=== PATIENT | male | born 1975 | race Caucasian/White ===

== ENCOUNTER 2021-08-31 12:08 | Emergency (ER) | payer MEDICARE, BC ==
--- NOTE | 2021-08-31 12:13 | ERPHSYRPT ---
- History of Present Illness Time Seen by Provider: 08/31/21 12:13 Source: EMS Exam Limitations: clinical condition Physician History: This is a 45-year-old white male patient of Dr. Jimenez who is a paraplegic and is on home dialysis. Apparently, per EMS report, the said that the patient has not received dialysis in approximately 3 days. Per EMS service, this is a fairly common occurrence. Patient's Glascow coma scale was 7 when EMS arrived to the home and his respirations were shallow measuring approximately 7 to 8 respirations per minute. Patient was orotracheally intubated with a 7.5 ET tube measuring 26 at the lips. Patient arrives to the emergency department orotracheally intubated and unresponsive. Timing/Duration: today Severity: severe Character of Deficits: other (Longstanding paraplegic. Patient is orotracheally intubated) Deficits: bed-ridden, cannot stand, cannot walk Baseline/Normal Cognition: alert oriented x 3 Current Cognition: poor alertness Baseline Gait: unable to walk Associated Symptoms: other (Patient orotracheally intubated and unresponsive) Allergies/Adverse Reactions: No Known Drug Allergies Allergy (Verified 08/31/21 12:22) Home Medications: Anastrozole 0.5 mg PO DAILY 01/28/12 [History] Baclofen 20 mg PO TID 01/28/12 [History] Cabergoline 0.5 mg PO UD 01/28/12 [History] Carvedilol 25 mg PO BID 01/28/12 [History] Famotidine 20 mg 20 mg PO DAILY 01/28/12 [History] Labetalol HCl 400 mg PO BID 01/28/12 [History] Renvela 3,200 mg PO TID 01/28/12 [History] Sensipar 90 mg PO DAILY 01/28/12 [History] Stool Softener DAILY PRN PRN 01/28/12 [History] Triphrocaps Softgel 1 cap PO DAILY 01/28/12 [History] Viagra 100 mg PO DAILY PRN PRN 01/28/12 [History] Vitamin D 50,000 units PO 01/28/12 [History] Zemplar 1 mcg PO 01/28/12 [History] Zemplar 2 mcg PO DAILY 01/28/12 [History] Hx Tetanus, Diphtheria Vaccination/Date Given: Yes (1993) Hx Influenza Vaccination/Date Given: No Hx Pneumococcal Vaccination/Date Given: No Travel Risk - International Travel Have you traveled outside of the country in past 3 weeks: No - Coronavirus Screening Are you exhibiting any of the following symptoms?: No Close contact with a COVID-19 positive Pt in past 14-21 Days: No - Review of Systems Constitutional: No Symptoms Eyes: No Symptoms Ears, Nose, & Throat: No Symptoms Respiratory: No Symptoms Cardiac: No Symptoms Abdominal/Gastrointestinal: No Symptoms Genitourinary Symptoms: No Symptoms Musculoskeletal: No Symptoms Skin: No Symptoms Neurological: Other (Patient orotracheally intubated and unresponsive) Psychological: No Symptoms Endocrine: No Symptoms Hematologic/Lymphatic: No Symptoms Immunological/Allergic: No Symptoms All Other Systems: Reviewed and Negative - Past Medical History Pertinent Past Medical History: Yes History: Renal Disease Other Medical History: PARAPLEGIC, END STAGE RENAL DISEASE, NEUROPATHY - Past Surgical History Past Surgical History: Yes Gastrointestinal: Hernia Repair Musculoskeletal: Orthopedic Surgery Other Surgical History: SPINAL FUSION, FISTULA PLACEMENT, HERNIA REPAIR - Social History Smoking Status: Current every day smoker How long have you smoked: 20 Exposure to second hand smoke: No Drug Use: none Patient Lives Alone: No - Nursing Vital Signs Nursing Vital Signs: Initial Vital Signs Temperature 97.3 F 08/31/21 12:09 Pulse Rate 79 08/31/21 12:09 Respiratory Rate 18 08/31/21 12:09 Blood Pressure 164/125 08/31/21 12:09 O2 Sat by Pulse Oximetry 97 08/31/21 12:09 Pain Scale Pain Intensity 0 - Hardin Coma Scale Best Eye Response (Hardin): (1) no response Best Verbal Response (Anitha): (1) no verbal response Best Motor Response (Hardin): (1) no motor response Hardin Total: 3 - Physical Exam General Appearance: other (Patient orotracheal intubated unresponsive) Eye Exam: bilateral eye: normal inspection Ears, Nose, Throat Exam: other (Orotracheally intubated) Neck Exam: normal inspection, non-tender, supple, full range of motion Respiratory: normal breath sounds, lungs clear, other (Patient orotracheally intubated), No chest tenderness, No respiratory distress Cardiovascular: regular rate/rhythm, normal heart sounds, normal peripheral pulses Gastrointestinal: soft, normal bowel sounds, No tenderness Rectal Exam: not done Back Exam: normal inspection, normal range of motion, No CVA tenderness, No vertebral tenderness Extremity Exam: paralysis (Chronic), pedal edema Mental Status: unresponsive Skin Exam: pale O2 Delivery: Ventilator - Course Nursing assessment & vital signs reviewed: Yes EKG Interpreted by Me: RATE (80), Sinus Rhythm, NORMAL AXIS, prolonged QT interval (Borderline), NORMAL QRS, NORMAL ST-T, Other (No acute ischemic changes on today's EKG. There is no comparison EKG.) Ordered Tests: Active Orders 24 hr Category Date Time Status EKG-ER Only STAT Care 08/31/21 12:13 Active IV Insertion STAT Care 08/31/21 12:13 Active NPO (ED) STAT Care 08/31/21 12:13 Active CHEST 1 VIEW (PORTABLE) Stat Exams 08/31/21 12:15 Completed HEAD WITHOUT CONTRAST [CT] Stat Exams 08/31/21 12:14 Completed ABG [ARTERIAL BLOOD GASES] Stat Lab 08/31/21 12:13 Completed ABG [ARTERIAL BLOOD GASES] Urgent Lab 08/31/21 13:48 Completed BLOOD CULTURE Stat Lab 08/31/21 12:55 Received BMP Urgent Lab 08/31/21 15:25 Received CBC W DIFF Stat Lab 08/31/21 12:55 Completed CMP Stat Lab 08/31/21 12:55 Completed COVID AG-BINAX NOW RAPID TEST Stat Lab 08/31/21 14:05 Completed CULTURE,URINE Stat Lab 08/31/21 12:14 Ordered Lactic Acid Stat Lab 08/31/21 12:13 Completed POCT GLUCOSE Stat Lab 08/31/21 15:31 Completed TROPONIN Q3H Lab 08/31/21 12:55 Completed TROPONIN Q3H Lab 08/31/21 15:25 Received TROPONIN Q3H Lab 08/31/21 18:30 Ordered TROPONIN Q3H Lab 08/31/21 21:30 Ordered TROPONIN Q3H Lab 09/01/21 00:30 Ordered UA W/RFX UR CULTURE Stat Lab 08/31/21 12:18 Completed Respiratory Therapy Assessment DAILY RT 08/31/21 13:54 Active Standby STAT RT 08/31/21 14:05 Active Ventilator Management Q4H RT 08/31/21 13:54 Active Medication Summary Generic Name Dose Route Start Last Admin Trade Name Freq PRN Reason Stop Dose Admin Midazolam HCl 50 mg/ Sodium 250 mls @ 8.85 mls/hr 08/31/21 12:53 Chloride IV 09/30/21 12:52 .Q24H PRN SEDATION Protocol 0.025 MG/KG/HR Discontinued Medications Generic Name Dose Route Start Last Admin Trade Name Connie PRN Reason Stop Dose Admin Calcium Gluconate 1,000 mg 08/31/21 15:56 Calcium Gluconate 1000 Mg/10 Ml Vial IV 08/31/21 15:57 STAT ONE Dextrose 50 ml 08/31/21 13:51 08/31/21 14:04 Dextrose 50%-Water 50 Ml Abboject IV 08/31/21 13:52 50 ml STAT ONE Administration Dextrose Confirm 08/31/21 14:04 Dextrose 50%-Water 50 Ml Abboject Administered 08/31/21 14:05 Dose 50 ml IV .STK-MED ONE Calcium Chloride 1,000 mg/ 110 mls @ 220 mls/hr 08/31/21 13:38 08/31/21 14:22 Sodium Chloride IV 08/31/21 14:07 220 mls/hr ONCE ONE Administration Ceftriaxone Sodium/Dextrose 1 g in 50 mls @ 100 mls/hr 08/31/21 13:56 08/31/21 14:40 Rocephin 1 Gm-D5w 50 Ml Bag IV 08/31/21 14:25 Infused STAT STA Infusion Ceftriaxone Sodium/Dextrose Confirm 08/31/21 14:03 Rocephin 1 Gm-D5w 50 Ml Bag Administered 08/31/21 14:04 Dose 1 g in 50 mls @ ud IV .STK-MED ONE Metoprolol Tartrate 5 mg 08/31/21 14:13 08/31/21 14:21 Metoprolol Tartrate 5 Mg/5 Ml Injection IV 08/31/21 14:14 5 mg STAT ONE Administration Metoprolol Tartrate Confirm 08/31/21 14:18 Metoprolol Tartrate 5 Mg/5 Ml Injection Administered 08/31/21 14:19 Dose 5 mg IV .STK-MED ONE Sodium Bicarbonate 50 meq 08/31/21 15:25 08/31/21 15:45 Sodium Bicarbonate 1 Meq/Ml 50ml Syringe IV 08/31/21 15:26 50 meq STAT ONE Administration Sodium Bicarbonate Confirm 08/31/21 15:45 Sodium Bicarbonate 1 Meq/Ml 50ml Syringe Administered 08/31/21 15:46 Dose 50 meq IV .STK-MED ONE Lab/Rad Data: Laboratory Result Diagrams 08/31/21 12:55 08/31/21 12:55 Laboratory Results 08/31/21 08/31/21 08/31/21 Range/Units 15:31 14:05 13:48 WBC (4.0-10.5) K/mm3 RBC (4.1-5.6) M/mm3 Hgb (12.5-18.0) gm/dl Hct (42-50) % MCV (78-100) fl MCH (26-32) pg MCHC (32-36) g/dl RDW (11.5-14.0) % Plt Count (150-450) K/mm3 MPV (7.5-11.0) fl Gran % (36.0-66.0) % Eos # (Auto) (0-0.5) Absolute Lymphs (auto) (1.0-4.6) Absolute Monos (auto) (0.0-1.3) Lymphocytes % (24.0-44.0) % Monocytes % (0.0-12.0) % Eosinophils % (0.00-5.0) % Basophils % (0.0-0.4) % Absolute Granulocytes (1.4-6.9) Basophils # (0-0.4) Puncture Site LEFT RADIAL pCO2 43 (35-45) mmHg pO2 198 H* (75-100) mmHg Base Excess -0.6 (-2.0-2.0) O2 Saturation 97.6 (94-100) g/dF ABG pH 7.37 (7.35-7.45) ABG HCO3 24.9 (22-28) ABG O2 Sat (Measured) 99.2 (95-100) % Jet Test YES A-a Gradient 176 a/A Ratio 0.53 Hemoglobin 10.4 Carboxyhemoglobin 1.0 (0.0-6.9) % THgb Methemoglobin 0.7 L (1.4-1.5) % Potassium 6.9 H* (3.5-5.1) Temperature 37.0 C POC O2 Flow Rate 60 % Sodium (137-145) mmol/L Chloride (98-107) mmol/L Carbon Dioxide (22-30) mmol/L Anion Gap (5-15) MEQ/L BUN (9-20) mg/dL Creatinine (0.66-1.25) mg/dL Estimated GFR ML/MIN Glucose (74-106) mg/dL POC Glucometer 119 H (74 to 106) mg/dL Lactic Acid (0.4-2.0) Calcium (8.4-10.2) mg/dL Total Bilirubin (0.2-1.3) mg/dL AST (17-59) U/L ALT (0-50) U/L Alkaline Phosphatase (38-126) U/L Ammonia (9-30) umol/L Troponin I (0.000-0.034) ng/mL Serum Total Protein (6.3-8.2) g/dL Albumin (3.5-5.0) g/dL Urine Color (YELLOW) Urine Appearance (CLEAR) Urine pH (5-6) Ur Specific [place] (1.005-1.025) Urine Protein (Negative) Urine Ketones (NEGATIVE) Urine Blood (0-5) Miguel A/ul Urine Nitrite (NEGATIVE) Urine Bilirubin (NEGATIVE) Urine Urobilinogen (0-1) mg/dL Ur Leukocyte Esterase (NEGATIVE) Urine WBC (Auto) (0-5) /HPF Urine RBC (Auto) (0-2) /HPF Urine Bacteria (Auto) (NEGATIVE) /HPF Urine Culture Reflexed (NO) Urine Glucose (NEGATIVE) mg/dL SARS-CoV-2 Ag (Rapid) NEGATIVE (NEGATIVE) 08/31/21 08/31/21 08/31/21 Range/Units 12:55 12:55 12:55 WBC (4.0-10.5) K/mm3 RBC (4.1-5.6) M/mm3 Hgb (12.5-18.0) gm/dl Hct (42-50) % MCV (78-100) fl MCH (26-32) pg MCHC (32-36) g/dl RDW (11.5-14.0) % Plt Count (150-450) K/mm3 MPV (7.5-11.0) fl Gran % (36.0-66.0) % Eos # (Auto) (0-0.5) Absolute Lymphs (auto) (1.0-4.6) Absolute Monos (auto) (0.0-1.3) Lymphocytes % (24.0-44.0) % Monocytes % (0.0-12.0) % Eosinophils % (0.00-5.0) % Basophils % (0.0-0.4) % Absolute Granulocytes (1.4-6.9) Basophils # (0-0.4) Puncture Site pCO2 (35-45) mmHg pO2 (75-100) mmHg Base Excess (-2.0-2.0) O2 Saturation (94-100) g/dF ABG pH (7.35-7.45) ABG HCO3 (22-28) ABG O2 Sat (Measured) (95-100) % Jet Test A-a Gradient a/A Ratio Hemoglobin Carboxyhemoglobin (0.0-6.9) % THgb Methemoglobin (1.4-1.5) % Potassium 6.8 H* (3.5-5.1) Temperature C POC O2 Flow Rate % Sodium 141 (137-145) mmol/L Chloride 98 (98-107) mmol/L Carbon Dioxide 21 L (22-30) mmol/L Anion Gap 28.9 H (5-15) MEQ/L BUN 89 H (9-20) mg/dL Creatinine 9.84 H (0.66-1.25) mg/dL Estimated GFR 6.1 ML/MIN Glucose 81 (74-106) mg/dL POC Glucometer (74 to 106) mg/dL Lactic Acid (0.4-2.0) Calcium 9.5 (8.4-10.2) mg/dL Total Bilirubin 1.20 (0.2-1.3) mg/dL AST 16 L (17-59) U/L ALT 8 (0-50) U/L Alkaline Phosphatase 157 H (38-126) U/L Ammonia < 9 L (9-30) umol/L Troponin I 0.020 (0.000-0.034) ng/mL Serum Total Protein 8.2 (6.3-8.2) g/dL Albumin 4.6 (3.5-5.0) g/dL Urine Color (YELLOW) Urine Appearance (CLEAR) Urine pH (5-6) Ur Specific [place] (1.005-1.025) Urine Protein (Negative) Urine Ketones (NEGATIVE) Urine Blood (0-5) Miguel A/ul Urine Nitrite (NEGATIVE) Urine Bilirubin (NEGATIVE) Urine Urobilinogen (0-1) mg/dL Ur Leukocyte Esterase (NEGATIVE) Urine WBC (Auto) (0-5) /HPF Urine RBC (Auto) (0-2) /HPF Urine Bacteria (Auto) (NEGATIVE) /HPF Urine Culture Reflexed (NO) Urine Glucose (NEGATIVE) mg/dL SARS-CoV-2 Ag (Rapid) (NEGATIVE) 08/31/21 08/31/21 08/31/21 Range/Units 12:55 12:18 12:13 WBC 8.2 (4.0-10.5) K/mm3 RBC 3.85 L (4.1-5.6) M/mm3 Hgb 10.5 L (12.5-18.0) gm/dl Hct 34.1 L (42-50) % MCV 88.6 (78-100) fl MCH 27.3 (26-32) pg MCHC 30.8 L (32-36) g/dl RDW 17.7 H (11.5-14.0) % Plt Count 332 (150-450) K/mm3 MPV 10.1 (7.5-11.0) fl Gran % 73.1 H (36.0-66.0) % Eos # (Auto) 0.46 (0-0.5) Absolute Lymphs (auto) 1.01 (1.0-4.6) Absolute Monos (auto) 0.71 (0.0-1.3) Lymphocytes % 12.3 L (24.0-44.0) % Monocytes % 8.6 (0.0-12.0) % Eosinophils % 5.6 H (0.00-5.0) % Basophils % 0.4 (0.0-0.4) % Absolute Granulocytes 6.01 (1.4-6.9) Basophils # 0.03 (0-0.4) Puncture Site pCO2 (35-45) mmHg pO2 (75-100) mmHg Base Excess (-2.0-2.0) O2 Saturation (94-100) g/dF ABG pH (7.35-7.45) ABG HCO3 (22-28) ABG O2 Sat (Measured) (95-100) % Jet Test A-a Gradient a/A Ratio Hemoglobin Carboxyhemoglobin (0.0-6.9) % THgb Methemoglobin (1.4-1.5) % Potassium (3.5-5.1) Temperature C POC O2 Flow Rate % Sodium (137-145) mmol/L Chloride (98-107) mmol/L Carbon Dioxide (22-30) mmol/L Anion Gap (5-15) MEQ/L BUN (9-20) mg/dL Creatinine (0.66-1.25) mg/dL Estimated GFR ML/MIN Glucose (74-106) mg/dL POC Glucometer (74 to 106) mg/dL Lactic Acid 0.7 (0.4-2.0) Calcium (8.4-10.2) mg/dL Total Bilirubin (0.2-1.3) mg/dL AST (17-59) U/L ALT (0-50) U/L Alkaline Phosphatase (38-126) U/L Ammonia (9-30) umol/L Troponin I (0.000-0.034) ng/mL Serum Total Protein (6.3-8.2) g/dL Albumin (3.5-5.0) g/dL Urine Color YELLOW (YELLOW) Urine Appearance TURBID (CLEAR) Urine pH 8.0 (5-6) Ur Specific [place] 1.016 (1.005-1.025) Urine Protein >=500 (Negative) Urine Ketones NEGATIVE (NEGATIVE) Urine Blood LARGE (0-5) Miguel A/ul Urine Nitrite NEGATIVE (NEGATIVE) Urine Bilirubin NEGATIVE (NEGATIVE) Urine Urobilinogen NEGATIVE (0-1) mg/dL Ur Leukocyte Esterase LARGE (NEGATIVE) Urine WBC (Auto) >100 (0-5) /HPF Urine RBC (Auto) 51-100 (0-2) /HPF Urine Bacteria (Auto) MANY (NEGATIVE) /HPF Urine Culture Reflexed ORDERED SEPARATELY (NO) Urine Glucose NEGATIVE (NEGATIVE) mg/dL SARS-CoV-2 Ag (Rapid) (NEGATIVE) 08/31/21 Range/Units 12:13 WBC (4.0-10.5) K/mm3 RBC (4.1-5.6) M/mm3 Hgb (12.5-18.0) gm/dl Hct (42-50) % MCV (78-100) fl MCH (26-32) pg MCHC (32-36) g/dl RDW (11.5-14.0) % Plt Count (150-450) K/mm3 MPV (7.5-11.0) fl Gran % (36.0-66.0) % Eos # (Auto) (0-0.5) Absolute Lymphs (auto) (1.0-4.6) Absolute Monos (auto) (0.0-1.3) Lymphocytes % (24.0-44.0) % Monocytes % (0.0-12.0) % Eosinophils % (0.00-5.0) % Basophils % (0.0-0.4) % Absolute Granulocytes (1.4-6.9) Basophils # (0-0.4) Puncture Site RIGHT RADIAL pCO2 35 (35-45) mmHg pO2 435 H* (75-100) mmHg Base Excess 0.1 (-2.0-2.0) O2 Saturation 97.4 (94-100) g/dF ABG pH 7.44 (7.35-7.45) ABG HCO3 23.8 (22-28) ABG O2 Sat (Measured) 99.4 (95-100) % Jet Test YES A-a Gradient 234 a/A Ratio 0.65 Hemoglobin 10.0 Carboxyhemoglobin 0.6 (0.0-6.9) % THgb Methemoglobin 1.3 L (1.4-1.5) % Potassium 6.6 H* (3.5-5.1) Temperature 37.0 C POC O2 Flow Rate 100 % Sodium (137-145) mmol/L Chloride (98-107) mmol/L Carbon Dioxide (22-30) mmol/L Anion Gap (5-15) MEQ/L BUN (9-20) mg/dL Creatinine (0.66-1.25) mg/dL Estimated GFR ML/MIN Glucose (74-106) mg/dL POC Glucometer (74 to 106) mg/dL Lactic Acid (0.4-2.0) Calcium (8.4-10.2) mg/dL Total Bilirubin (0.2-1.3) mg/dL AST (17-59) U/L ALT (0-50) U/L Alkaline Phosphatase (38-126) U/L Ammonia (9-30) umol/L Troponin I (0.000-0.034) ng/mL Serum Total Protein (6.3-8.2) g/dL Albumin (3.5-5.0) g/dL Urine Color (YELLOW) Urine Appearance (CLEAR) Urine pH (5-6) Ur Specific [place] (1.005-1.025) Urine Protein (Negative) Urine Ketones (NEGATIVE) Urine Blood (0-5) Miguel A/ul Urine Nitrite (NEGATIVE) Urine Bilirubin (NEGATIVE) Urine Urobilinogen (0-1) mg/dL Ur Leukocyte Esterase (NEGATIVE) Urine WBC (Auto) (0-5) /HPF Urine RBC (Auto) (0-2) /HPF Urine Bacteria (Auto) (NEGATIVE) /HPF Urine Culture Reflexed (NO) Urine Glucose (NEGATIVE) mg/dL SARS-CoV-2 Ag (Rapid) (NEGATIVE) - Progress Progress: improved, re-examined Progress Note: 08/31/21 13:47 Chest x-ray shows the ET tube in good position above the bifurcation. CAT scan of the head without contrast shows a normal CAT scan of the head. There are no acute changes 08/31/21 15:05 Patient's spouse wants the patient to be transferred to [facility]. 08/31/21 15:58 Medical decision making: This patient needs emergent hemodialysis. I spoke initially with Dr. Shepard. However he was signing off to Dr. Grant, the [facility] hospitalist. He accepts the patient in transfer. I also spoke with the patient's work car operator, Dr. Avila. His work car operator recommended that we give another dose of calcium gluconate. He also feels the patient needs emergent hemodialysis. We are awaiting transfer center to contact us regarding a bed to transfer. Counseled pt/family regarding: lab results, diagnosis, rad results - Departure Departure Disposition: Transfer (45) Clinical Impression: Unresponsive, Hypertensive cardiovascular-renal disease, Hyperkalemia, Acute on chronic renal failure, UTI (urinary tract infection) Condition: Serious Critical Care Time: Yes Critical Care Time(excluding separately billable procedures): Critical 30-74 mins Referrals: MINA JIMENEZ [Primary Care Provider] - Follow up/PCP as directed
[2021-08-31 12:14] LABS: A-aADO2 234; ABG POTASSIUM 6.6 (3.5-5.1); ARTERIAL BLD GAS O2 SATURATION 99.4 % (95-100); ARTERIAL BLOOD GAS BASE EXCESS 0.1 (-2.0-2.0); ARTERIAL BLOOD GAS FIO2 100 %; ARTERIAL BLOOD GAS PCO2 35 mmHg (35-45); ARTERIAL BLOOD GAS PO2 435 mmHg (75-100); ARTERIAL BLOOD GAS pH 7.44 (7.35-7.45); CARBOXYHEMOGLOBIN 0.6 % THgb (0.0-6.9); HCO3- 23.8 (22-28); HGB O2 SAT 97.4 g/dF (94-100); Methhemoglobin 1.3 % (1.4-1.5)
[2021-08-31 12:15] LABS: ABG SITE RIGHT RADIAL; ALLEN TEST OK? YES
--- NOTE | 2021-08-31 12:31 | XRAY ---
Indication: Unresponsive. Comparison: May 29, 2006. Portable chest demonstrates new endotracheal tube tip 4 cm above temo. Lungs less inflated with new hazy bilateral interstitial alveolar opacities and minimal bibasilar subsegmental atelectasis/scarring. No consolidation, large effusion, or pneumothorax. Heart not enlarged with new right large lumen dialysis catheter. Bony thorax intact again with bilateral T7-L1 Mclean rods/hooks. Impression: 1. Endotracheal tube tip 4 in good position. 2. New hazy bilateral interstitial alveolar opacities. Rule out pneumonitis.
[2021-08-31 12:52] VITALS: O2SAT 100
[2021-08-31 12:52] LABS: Appearance TURBID (CLEAR); Bacteria MANY /HPF (NEGATIVE); Bilirubin NEGATIVE (NEGATIVE); Blood LARGE Ery/ul (0-5); Glucose NEGATIVE (NEGATIVE); Ketones NEGATIVE (NEGATIVE); Leukocyte Esterase LARGE (NEGATIVE); Nitrite NEGATIVE (NEGATIVE); Protein,Urine Dip >=500 (Negative); RBC 51-100 /HPF (0-2); Specific Gravity 1.016 (1.005-1.025); Urobilinogen NEGATIVE mg/dL (0-1); WBC >100 /HPF (0-5)
[2021-08-31] MEDS ORDERED: Versed 50 MG/ 10 Ml MDV*** 50 MG in Sodium Chloride 0.9% 250 ML 240 ML IV PRN (12:53)
--- NOTE | 2021-08-31 12:59 | XRAY ---
Indication: Unresponsive. Multiple contiguous axial images obtained through the head without contrast. Comparison: May 29, 2006. Normal appearing brain parenchyma, ventricles, and bony calvarium for patient's age. Paranasal sinuses and mastoid air cells are clear. Impression: Continued normal CT head without contrast exam.
[2021-08-31 13:17] LABS: Absolute Neutrophil Ct (ANC) 6.01 (1.4-6.9); Basophil (Absolute #) 0.03 (0-0.4); Eosinophil % 5.6 % (0.00-5.0); Eosinophil (Absolute #) 0.46 (0-0.5); Hematocrit 34.1 % (42-50); Hemoglobin 10.5 gm/dl (12.5-18.0); Lymphocyte (Absolute #) 1.01 (1.0-4.6); Lymphocytes % 12.3 % (24.0-44.0); Mean Cell Volume 88.6 fl (78-100); Mean Corpuscular Hemoglobin 27.3 pg (26-32); Mean Corpuscular Hgb Concent. 30.8 g/dl (32-36); Mean Platelet Volume 10.1 fl (7.5-11.0); Monocyte (Absolute #) 0.71 (0.0-1.3); Monocytes % 8.6 % (0.0-12.0); Neutrophil % 73.1 % (36.0-66.0); Platelet Count 332 K/mm3 (150-450); Red Blood Count 3.85 M/mm3 (4.1-5.6); Red Cell Distribution Width 17.7 % (11.5-14.0); White Blood Count 8.2 K/mm3 (4.0-10.5)
[2021-08-31 13:30] LABS: ALBUMIN 4.6 g/dL (3.5-5.0); ANION GAP 28.9 MEQ/L (5-15); BILIRUBIN,TOTAL 1.2 mg/dL (0.2-1.3); Calcium 9.5 mg/dL (8.4-10.2); Creatinine 1 9.84 mg/dL (0.66-1.25); EST GLOMERULAR FILTRATION RATE 6.1 ML/MIN; Total Protein 8.2 g/dL (6.3-8.2)
[2021-08-31] MEDS ORDERED: SODIUM CHLORIDE 0.9% IV ONE (13:38)
[2021-08-31] MEDS ORDERED: CALCIUM CHLORIDE IV ONE (13:38)
[2021-08-31 13:40] LABS: Potassium 6.8 mmol/L (3.5-5.1)
[2021-08-31] MEDS ORDERED: D50W 50 ml Abboject IV ONE ×2 (13:51→14:04)
[2021-08-31 13:56] LABS: A-aADO2 176; ABG HEMOGLOBIN 10.4; ARTERIAL BLD GAS O2 SATURATION 99.2 % (95-100); ARTERIAL BLOOD GAS BASE EXCESS -0.6 (-2.0-2.0); ARTERIAL BLOOD GAS FIO2 60 %; ARTERIAL BLOOD GAS PCO2 43 mmHg (35-45); ARTERIAL BLOOD GAS PO2 198 mmHg (75-100); ARTERIAL BLOOD GAS pH 7.37 (7.35-7.45); HCO3- 24.9 (22-28); HGB O2 SAT 97.6 g/dF (94-100); Methhemoglobin 0.7 % (1.4-1.5)
[2021-08-31] MEDS ORDERED: ROCEPHIN 1 Gm-D5w 50 ml Bag** 1 G/50 ML IVPB IV STA (13:56)
[2021-08-31 13:57] LABS: ABG POTASSIUM 6.9 (3.5-5.1); ABG SITE LEFT RADIAL; ALLEN TEST OK? YES
[2021-08-31] MEDS ORDERED: ROCEPHIN 1 Gm-D5w 50 ml Bag** 1 G/50 ML IVPB IV ONE (14:03)
[2021-08-31] MEDS ORDERED: LOPRESSOR 5 MG/5 ML INJECTION IV ONE ×2 (14:13→14:18)
[2021-08-31 14:32] LABS: COVID AG -BINAX NOW RAPID TEST NEGATIVE (NEGATIVE)
[2021-08-31] MEDS ORDERED: SODIUM BICARBONATE 50 MEQ/50 ML ABBOJECT IV ONE ×2 (15:25→15:45)
[2021-08-31] MEDS ORDERED: Calcium Gluconate 10% 1000 MG IV ONE ×2 (15:56→16:07)
[2021-08-31 16:04] VITALS: BP 168/100; PULSE 63
[2021-08-31 16:12] LABS: ANION GAP 22.2 MEQ/L (5-15); Calcium 9.7 mg/dL (8.4-10.2); Creatinine 1 9.87 mg/dL (0.66-1.25); EST GLOMERULAR FILTRATION RATE 6.1 ML/MIN; TROPONIN 0.019 ng/mL (0.000-0.034)
[2021-08-31 16:18] LABS: Potassium 6.2 mmol/L (3.5-5.1)
--- NOTE | 2021-08-31 22:25 | XRAY ---
Indication: New left neck swelling. Comparison: Taken earlier in the day. Portable chest again demonstrates hazy bilateral interstitial alveolar opacities increased in the right mid to lower lung. Remaining chest unchanged again with minimal bibasilar subsegmental atelectasis/scarring, right dialysis catheter, and endotracheal tube in good position. No new cardiopulmonary abnormalities. Base of neck unremarkable.
== END 2021-08-31 16:54 | disposition short-term general hospital (02) ==
LOC: ED 12:08
DX: R40.4 Transient alteration of awareness (principal); N17.9 Acute kidney failure, unspecified; N39.0 Urinary tract infection, site not specified; E87.5 Hyperkalemia; I13.11 Hypertensive heart and chronic kidney disease without heart failure, with stage 5 chronic kidney disease, or end stage renal disease; N18.6 End stage renal disease; Z99.2 Dependence on renal dialysis; G82.20 Paraplegia, unspecified; Z72.0 Tobacco use; Z79.899 Other long term (current) drug therapy
CPT/HCPCS: 36000; 36415; 36600; 70450; 71045; 80048; 80053; 81001; 82140; 82375; 82803; 82947; 83605; 84484; 85025; 87040; 87086; 93005; 94002; 94799; 96365; 96374; 96375; 99000; 99285; 99291; J0610; J0696

== ENCOUNTER 2022-01-02 17:59 | Emergency (ER) | payer MEDICARE, BC ==
--- NOTE | 2022-01-02 18:30 | ERPHSYRPT ---
- History of Present Illness Source: patient Exam Limitations: no limitations Patient Subjective Stated Complaint: Pt fell on his left hip yesterday but today his right knee is swollen and his right leg is warm to the touch and it is causing him pain Triage Nursing Assessment: Pt brought to the ER by EMS, hypertensive, rates pain as 4/10 but the pain was an 8/10 prior to the morphine given by EMS, pt is a parapalegic but has some sensation in his legs but is unable to use them, pt had slipped out from his wheelchair when he fell on his left hip, today he feels grinding and pain in his right knee along with swelling and heat in his leg, pulses normal in dayne legs, skin n/w/d, doesn't appear to be in any distress Method of Injury: fell Occurred: yesterday Quality: sharpness, throbbing Severity of Pain-Max: moderate Severity of Pain-Current: mild Modifying Factors: Improves With: movement Associated Symptoms: none Hx Tetanus, Diphtheria Vaccination/Date Given: Yes (1993) Hx Influenza Vaccination/Date Given: No Hx Pneumococcal Vaccination/Date Given: No <VANDANA HODGE - Last Filed: 01/02/22 18:25> <JACQUELINE ALBRIGHT - Last Filed: 01/02/22 20:59> - History of Present Illness Time Seen by Provider: 01/02/22 18:15 Physician History: Patient is a 46-year-old male paraplegic who suffered a fall yesterday. He fell landing on his left hip he did not feel he had any other injury and today his right knee is swollen and hot to the touch. It is causing him pain. Upon arrival by EMS he was hypertensive rating his pain 4 of 10 it has been 8 of 10 prior to morphine given by EMS. He is paraplegic but does have some residual sensation but has no controlled muscular motion jordan of the. Patient says he can feel grinding and pain in his right knee along with swelling and heat. He has a history of arthritis but no history of gout. (VANDANA HODGE) Allergies/Adverse Reactions: No Known Drug Allergies Allergy (Verified 01/02/22 18:12) Home Medications: Triphrocaps Softgel 1 cap PO DAILY 01/28/12 [History] Vitamin D 50,000 units PO DAILY 01/28/12 [History] Baclofen 20 mg PO BID 01/02/22 [History] Carvedilol 12.5 mg [Coreg 12.5 mg] 12.5 mg PO BID 01/02/22 [History] Docusate Sodium [Stool Softener] 100 mg PO DAILY PRN 01/02/22 [History] Duloxetine HCl [Cymbalta] 60 mg PO DAILY 01/02/22 [History] Famotidine 20 mg [Pepcid 20 MG] 20 mg PO DAILY 01/02/22 [History] Lisinopril 5 mg [Zestril 5 MG] 5 mg PO DAILY 01/02/22 [History] Paricalcitol [Zemplar] 1 mcg PO DAILY 01/02/22 [History] Pregabalin [Lyrica 100Mg] 100 mg PO BID 01/02/22 [History] Sevelamer Carbonate [Renvela] 3,200 mg PO TID 01/02/22 [History] Sildenafil Citrate [Viagra] 100 mg PO DAILY PRN 01/02/22 [History] Travel Risk - International Travel Have you traveled outside of the country in past 3 weeks: No - Coronavirus Screening Are you exhibiting any of the following symptoms?: No Close contact with a COVID-19 positive Pt in past 14-21 Days: No - Vaccine Status Have you recieved a Covid-19 vaccination: No (unknown) <VANDANA HODGE - Last Filed: 01/02/22 18:25> - Review of Systems Constitutional: No Fever, No Chills Eyes: No Symptoms Ears, Nose, & Throat: No Symptoms Respiratory: No Cough, No Dyspnea Cardiac: No Chest Pain, No Edema, No Syncope Abdominal/Gastrointestinal: No Abdominal Pain, No Nausea, No Vomiting, No Diarrhea Genitourinary Symptoms: No Dysuria Musculoskeletal: Other (There is muscle wasting in both lower extremities secondary to his paraplegia), No Back Pain, No Neck Pain Skin: No Rash Neurological: No Dizziness, No Focal Weakness, No Sensory Changes Psychological: No Symptoms Endocrine: No Symptoms All Other Systems: Reviewed and Negative <VANDANA HODGE - Last Filed: 01/02/22 18:25> - Past Medical History Pertinent Past Medical History: Yes History: Renal Disease Other Medical History: PARAPLEGIC, END STAGE RENAL DISEASE, NEUROPATHY - Past Surgical History Past Surgical History: Yes Gastrointestinal: Hernia Repair Musculoskeletal: Orthopedic Surgery Other Surgical History: SPINAL FUSION, FISTULA PLACEMENT, HERNIA REPAIR - Social History Smoking Status: Former smoker How long have you smoked: 20 Exposure to second hand smoke: No Drug Use: none Patient Lives Alone: No <VANDANA HODGE Last Filed: 01/02/22 18:25> - Physical Exam General Appearance: mild distress Eyes, Ears, Nose, Throat Exam: moist mucous membranes Neck Exam: non-tender, supple Cardiovascular/Respiratory Exam: chest non-tender, normal breath sounds, regular rate/rhythm, no respiratory distress Gastrointestinal/Abdominal Exam: non-tender, guarding Back Exam: normal inspection, decreased range of motion, No vertebral tenderness Hips Exam: bilateral: limited range of motion Legs Exam: bilateral leg: limited range of motion, other (Muscle wasting) Knees Exam: right knee: joint effusion, pain, soft tissue tenderness, swelling, other (Hot to the touch) Neuro/Tendon Exam: No normal sensation, No normal motor functions, No normal tendon functions Mental Status Exam: alert, oriented x 3, cooperative Skin Exam: normal color, warm, dry SpO2 Interpretation: normal SpO2: 100 O2 Delivery: Room Air <VANDANA HODGE Last Filed: 01/02/22 18:25> - Nursing Vital Signs Nursing Vital Signs: Initial Vital Signs Temperature 98.6 F 01/02/22 18:01 Pulse Rate 88 01/02/22 18:01 Blood Pressure 175/105 01/02/22 18:01 O2 Sat by Pulse Oximetry 100 01/02/22 18:01 Pain Scale Pain Intensity 6 - Course Nursing assessment & vital signs reviewed: Yes <VANDANA HODGE Last Filed: 01/02/22 18:25> Ordered Tests: Active Orders 24 hr Category Date Time Status Sugarcane Planter STAT Care 01/02/22 20:27 Active IV Insertion STAT Care 01/02/22 20:26 Active Immobilizer STAT Care 01/02/22 20:26 Active FEMUR Stat Exams 01/02/22 19:13 Taken KNEE (1 OR 2 VIEW) Stat Exams 01/02/22 19:12 Taken CBC W DIFF Stat Lab 01/02/22 18:45 Completed CMP Stat Lab 01/02/22 18:45 Completed D-DIMER QUANTITATIVE Stat Lab 01/02/22 18:45 Completed SED RATE [Erythrocyte Sedimentation Rate] Stat Lab 01/02/22 18:45 Completed Uric Acid Stat Lab 01/02/22 18:45 Completed Medication Summary Generic Name Dose Route Start Last Admin Trade Name Connie PRN Reason Stop Dose Admin Sodium Bicarbonate 75 meq/ 1,075 mls @ 100 mls/hr 01/02/22 19:30 01/02/22 19:53 Dextrose/Sodium Chloride IV 02/01/22 19:29 100 mls/hr .[id number] ZUHAIR 100 mls/hr Administration Discontinued Medications Generic Name Dose Route Start Last Admin Trade Name Connie PRN Reason Stop Dose Admin Calcium Gluconate 1,000 mg 01/02/22 19:39 01/02/22 19:53 Calcium Gluconate 1000 Mg/10 Ml Vial IV 01/02/22 19:40 1,000 mg STAT ONE Administration Calcium Gluconate Confirm 01/02/22 19:51 Calcium Gluconate 1000 Mg/10 Ml Vial Administered 01/02/22 19:52 Dose 1,000 mg IV .STK-MED ONE Dextrose 50 ml 01/02/22 19:46 01/02/22 19:53 Dextrose 50%-Water 50 Ml Abboject IV 01/02/22 19:47 50 ml STAT ONE Administration Dextrose Confirm 01/02/22 19:51 Dextrose 50%-Water 50 Ml Abboject Administered 01/02/22 19:52 Dose 50 ml IV .STK-MED ONE Dextrose/Sodium Chloride Confirm 01/02/22 19:51 Dextrose 5% -0.45 Nacl 1000 Ml Administered 01/02/22 19:52 Dose 1,000 mls @ ud IV .STK-MED ONE Insulin Human Regular 4 unit 01/02/22 19:46 01/02/22 20:07 Insulin Regular, Human 1 Unit SQ 01/02/22 19:47 4 unit STAT ONE Administration Insulin Human Regular Confirm 01/02/22 20:07 Insulin Regular, Human 1 Unit Administered 01/02/22 20:08 Dose 4 unit .ROUTE .STK-MED ONE Morphine Sulfate 4 mg 01/02/22 19:57 01/02/22 19:59 Morphine Sulfate 4 Mg/Ml Injection IV 01/02/22 19:58 4 mg STAT ONE Administration Morphine Sulfate Confirm 01/02/22 19:58 Morphine Sulfate 4 Mg/Ml Injection Administered 01/02/22 19:59 Dose 4 mg .ROUTE .STK-MED ONE Patiromer 8.4 gm 01/02/22 19:43 01/02/22 19:57 Patiromer Calcium Sorbitex 8.4 Gm Powd.Pack PO 01/02/22 19:44 8.4 gm STAT STA Administration Patiromer Confirm 01/02/22 19:51 Patiromer Calcium Sorbitex 8.4 Gm Powd.Pack Administered 01/02/22 19:52 Dose 8.4 gm PO .STK-MED ONE Sodium Bicarbonate Confirm 01/02/22 19:51 Sodium Bicarbonate 1 Meq/Ml 50ml Vial Administered 01/02/22 19:52 Dose 100 meq .ROUTE .STK-MED ONE Lab/Rad Data: Laboratory Result Diagrams 01/02/22 18:45 01/02/22 18:45 Laboratory Results 01/02/22 01/02/22 01/02/22 Range/Units 18:45 18:45 18:45 WBC (4.0-10.5) x10^3/uL RBC (4.1-5.6) x10^6/uL Hgb (12.5-18.0) g/dL Hct (42-50) % MCV (78-100) fL MCH (26-32) pg MCHC (32-36) g/dL RDW (11.5-14.0) % Plt Count (150-450) x10^3/uL MPV (7.5-11.0) fL Gran % (36.0-66.0) % Immature Gran % (Auto) (0.00-0.4) % Nucleat RBC Rel Count (0.00-0.1) % Eos # (Auto) (0-0.5) x10^3/uL Immature Gran # (Auto) (0.00-0.03) x10^3u/L Absolute Lymphs (auto) (1.0-4.6) x10^3/uL Absolute Monos (auto) (0.0-1.3) x10^3/uL Absolute Nucleated RBC (0.00-0.01) x10^3u/L Lymphocytes % (24.0-44.0) % Monocytes % (0.0-12.0) % Eosinophils % (0.00-5.0) % Basophils % (0.0-0.4) % Absolute Granulocytes (1.4-6.9) x10^3/uL Basophils # (0-0.4) x10^3/uL ESR 120 H (0-15) mm/hr D-Dimer 11.33 H* (0.0-0.50) mg/L Sodium 137 (137-145) mmol/L Potassium 6.1 H* (3.5-5.1) mmol/L Chloride 94 L (98-107) mmol/L Carbon Dioxide 23 (22-30) mmol/L Anion Gap 26.3 H (5-15) MEQ/L BUN 86 H (9-20) mg/dL Creatinine 11.32 H (0.66-1.25) mg/dL Estimated GFR 5.2 ML/MIN Glucose 86 (74-106) mg/dL Uric Acid (3.5-7.2) mg/dL Calcium 10.2 (8.4-10.2) mg/dL Total Bilirubin 0.90 (0.2-1.3) mg/dL AST 17 (17-59) U/L ALT 10 (0-50) U/L Alkaline Phosphatase 122 (38-126) U/L Serum Total Protein 8.3 H (6.3-8.2) g/dL Albumin 4.2 (3.5-5.0) g/dL 01/02/22 01/02/22 Range/Units 18:45 18:45 WBC 13.8 H (4.0-10.5) x10^3/uL RBC 3.29 L (4.1-5.6) x10^6/uL Hgb 8.6 L (12.5-18.0) g/dL Hct 27.8 L (42-50) % MCV 84.5 (78-100) fL MCH 26.1 (26-32) pg MCHC 30.9 L (32-36) g/dL RDW 18.6 H (11.5-14.0) % Plt Count 314 (150-450) x10^3/uL MPV 9.7 (7.5-11.0) fL Gran % 73.9 H (36.0-66.0) % Immature Gran % (Auto) 1.1 H (0.00-0.4) % Nucleat RBC Rel Count 0.0 (0.00-0.1) % Eos # (Auto) 0.40 (0-0.5) x10^3/uL Immature Gran # (Auto) 0.15 H (0.00-0.03) x10^3u/L Absolute Lymphs (auto) 1.56 (1.0-4.6) x10^3/uL Absolute Monos (auto) 1.40 H (0.0-1.3) x10^3/uL Absolute Nucleated RBC 0.00 (0.00-0.01) x10^3u/L Lymphocytes % 11.3 L (24.0-44.0) % Monocytes % 10.1 (0.0-12.0) % Eosinophils % 2.9 (0.00-5.0) % Basophils % 0.7 (0.0-0.4) % Absolute Granulocytes 10.21 H (1.4-6.9) x10^3/uL Basophils # 0.09 (0-0.4) x10^3/uL ESR (0-15) mm/hr D-Dimer (0.0-0.50) mg/L Sodium (137-145) mmol/L Potassium (3.5-5.1) mmol/L Chloride (98-107) mmol/L Carbon Dioxide (22-30) mmol/L Anion Gap (5-15) MEQ/L BUN (9-20) mg/dL Creatinine (0.66-1.25) mg/dL Estimated GFR ML/MIN Glucose (74-106) mg/dL Uric Acid 8.1 H (3.5-7.2) mg/dL Calcium (8.4-10.2) mg/dL Total Bilirubin (0.2-1.3) mg/dL AST (17-59) U/L ALT (0-50) U/L Alkaline Phosphatase (38-126) U/L Serum Total Protein (6.3-8.2) g/dL Albumin (3.5-5.0) g/dL - Progress Progress: unchanged <VANDANA HODGE - Last Filed: 01/02/22 18:25> - Progress Counseled pt/family regarding: lab results, diagnosis, rad results <JACQUELINE ALBRIGHT - Last Filed: 01/02/22 20:59> - Progress Progress Note: Patient endorsed to Dr. Albright at approximately [address] Albright advised to follow- up on pending labs and x-ray. X-ray reveals a distal femur fracture of the right femur. There is displacement and minimal angulation. Extremity neurovascular intact distally. Compartments are soft. Patient is a paraplegic and does not have motor function of his lower extremities. Patient is anemic at 8.6. Patient has history of end-stage renal disease on hemodialysis. Patient receives home hemodialysis every other day. Patient is due for dialysis this evening. Current potassium is 6.1. We are initiating measures to decrease potassium including calcium gluconate/cardioprotective. Patient has an anion gap acidosis of 26. Plan of care discussed with patient. He agrees to transfer to [facility] for further evaluation and treatment. Case discussed with Dr. Isidro ER physician at [facility] who accepts transfer. Portions of this note were created with voice recognition technology. There may be grammatical, spelling, punctuation or sound alike errors 01/02/22 19:48 Knee immobilizer will be applied to mobilize the fracture distal femur. 01/02/22 19:51 Elevated D-dimer however this will be elevated in the setting of a femur fracture. Patient has no chest pain or shortness of breath. 01/02/22 20:57 (JACQUELINE ALBRIGHT) - Departure Departure Disposition: Home Critical Care Time: No <VANDANA HODGE - Last Filed: 01/02/22 18:25> - Departure Departure Disposition: Transfer <JACQUELINE ALBRIGHT - Last Filed: 01/02/22 20:59> - Departure Clinical Impression: Knee pain, Femur fracture, Hyperkalemia, High anion gap metabolic acidosis, End stage renal disease, Anemia, Paraplegia, Fall Condition: Stable Referrals: MINA JIMENEZ [Primary Care Provider] - Follow up/PCP as directed
[2022-01-02 18:48] LABS: Absolute Neutrophil Ct (ANC) 10.21 x10^3/uL (1.4-6.9); Basophil (Absolute #) 0.09 x10^3/uL (0-0.4); Eosinophil % 2.9 % (0.00-5.0); Hematocrit 27.8 % (42-50); Hemoglobin 8.6 g/dL (12.5-18.0); Lymphocyte (Absolute #) 1.56 x10^3/uL (1.0-4.6); Lymphocytes % 11.3 % (24.0-44.0); Mean Cell Volume 84.5 fL (78-100); Mean Corpuscular Hemoglobin 26.1 pg (26-32); Mean Corpuscular Hgb Concent. 30.9 g/dL (32-36); Mean Platelet Volume 9.7 fL (7.5-11.0); Monocytes % 10.1 % (0.0-12.0); Neutrophil % 73.9 % (36.0-66.0); Platelet Count 314 x10^3/uL (150-450); Red Blood Count 3.29 x10^6/uL (4.1-5.6); Red Cell Distribution Width 18.6 % (11.5-14.0); White Blood Count 13.8 x10^3/uL (4.0-10.5)
[2022-01-02 19:22] LABS: ALBUMIN 4.2 g/dL (3.5-5.0); ANION GAP 26.3 MEQ/L (5-15); BILIRUBIN,TOTAL 0.9 mg/dL (0.2-1.3); Calcium 10.2 mg/dL (8.4-10.2); Creatinine 1 11.32 mg/dL (0.66-1.25); EST GLOMERULAR FILTRATION RATE 5.2 ML/MIN; Total Protein 8.3 g/dL (6.3-8.2)
[2022-01-02 19:25] LABS: Potassium 6.1 mmol/L (3.5-5.1)
[2022-01-02] MEDS ORDERED: Sodium Bicarbonate 50 MEQ/50 ML VIAL*** 75 MEQ in Dextrose 5% -0.45 NaCl 1000 ML 1,000 ML IV SCH (19:30)
[2022-01-02] MEDS ORDERED: Calcium Gluconate 10% 1000 MG IV ONE ×2 (19:39→19:51)
[2022-01-02] MEDS ORDERED: VELTASSA PO STA (19:43)
[2022-01-02] MEDS ORDERED: D50W 50 ml Abboject IV ONE ×2 (19:46→19:51)
[2022-01-02] MEDS ORDERED: HUMULIN R SQ ONE (19:46)
[2022-01-02] MEDS ORDERED: Dextrose 5% -0.45 NaCl 1000 ML 1,000 ML IV ONE (19:51)
[2022-01-02] MEDS ORDERED: VELTASSA PO ONE (19:51)
[2022-01-02] MEDS ORDERED: Sodium Bicarbonate 50 MEQ/50 ML VIAL ONE (19:51)
[2022-01-02] MEDS ORDERED: MORPHINE SULFATE 4 MG INJ IV ONE (19:57)
[2022-01-02] MEDS ORDERED: MORPHINE SULFATE 4 MG INJ ONE (19:58)
[2022-01-02] MEDS ORDERED: HUMULIN R ONE (20:07)
[2022-01-02 20:09] VITALS: O2SAT 98
[2022-01-02 21:06] VITALS: BP 159/101; PULSE 100
[2022-01-02 21:26] LABS: ABO TYPING B; Antibody Screen NEGATIVE (NEGATIVE); RH TYPING NEGATIVE
--- NOTE | 2022-01-03 08:51 | XRAY ---
Indication: Pain following fall. Comparison: None 2 view right knee demonstrates moderately displaced fracture distal femur shaft with soft tissue swelling. Incidental osteopenia and moderate scattered vascular calcifications. Remaining knee unremarkable.
--- NOTE | 2022-01-03 08:51 | XRAY ---
Indication: Pain following fall. Comparison: None 2 view right femur demonstrates moderately displaced fracture distal shaft with soft tissue swelling. Incidental osteopenia, chunky right hip heterotopic ossifications, and moderate scattered vascular calcifications. Remaining femur unremarkable.
== END 2022-01-02 21:30 | disposition short-term general hospital (02) ==
LOC: ED 17:59
DX: S72.401A Unspecified fracture of lower end of right femur, initial encounter for closed fracture (principal); W05.0XXA Fall from non-moving wheelchair, initial encounter; M25.561 Pain in right knee; E87.5 Hyperkalemia; E87.2 Acidosis; N18.6 End stage renal disease; D64.9 Anemia, unspecified; G82.20 Paraplegia, unspecified; Z99.2 Dependence on renal dialysis; Z99.3 Dependence on wheelchair; Z79.899 Other long term (current) drug therapy
CPT/HCPCS: 36000; 36415; 73552; 73560; 80053; 84550; 85025; 85379; 85652; 86850; 86900; 86901; 93041; 96372; 96374; 96375; 99285; J0610; J1815; J2270; L1830

== ENCOUNTER 2022-03-07 21:36 | Emergency (ER) | payer MEDICARE, BC ==
[2022-03-07] MEDS ORDERED: NORCO 5/325 MG PO ONE (22:03)
[2022-03-07] MEDS ORDERED: NORCO 5/325 MG ONE (22:08)
--- NOTE | 2022-03-07 23:08 | ERPHSYRPT ---
- History of Present Illness Time Seen by Provider: 03/07/22 21:44 Source: patient Exam Limitations: no limitations Patient Subjective Stated Complaint: I was sleeping, I was close to the edge of the bed and fell out of it. Triage Nursing Assessment: Pt arrived to ER via EMS. Pt states, "I was in bed asleep, I was close to the edge of the bed and just fell out of bed". Pt had his home dialysis set up when this fall out of bed occured. Pt is a paraplegic. No deformities noted to rt lower leg. Non-pitting edema noted but that is not new per pt. Pt has dialysis fistula to Rt lower arm, bruit noted. Physician History: 46 years old male with history of paraplegia, wheelchair-bound, ESRD on dialysis presented in the ER after he fell asleep while sitting on the side of the bed and fell forward hitting his right tibia against the floor and complaining of moderate intensity sharp pain mid to lower right tibia. No injury anywhere else. Occurred: just prior to arrival Reason for Fall: fell from height Injuries/Pain Location: lower extremity Loss of Consciousness: no loss of consciousness Quality: sharpness Severity of Pain-Max: moderate Severity of Pain-Current: moderate Modifying Factors: Worsens With: movement Associated Symptoms (Fall): muscle spasms Allergies/Adverse Reactions: No Known Drug Allergies Allergy (Verified 03/07/22 21:50) Home Medications: Triphrocaps Softgel 1 cap PO DAILY 01/28/12 [History] Vitamin D 50,000 units PO DAILY 01/28/12 [History] Baclofen 20 mg PO BID 01/02/22 [History] Carvedilol 12.5 mg [Coreg 12.5 mg] 12.5 mg PO BID 01/02/22 [History] Docusate Sodium [Stool Softener] 100 mg PO DAILY PRN 01/02/22 [History] Duloxetine HCl [Cymbalta] 60 mg PO DAILY 01/02/22 [History] Famotidine 20 mg [Pepcid 20 MG] 20 mg PO DAILY 01/02/22 [History] Lisinopril 5 mg [Zestril 5 MG] 5 mg PO DAILY 01/02/22 [History] Paricalcitol [Zemplar] 1 mcg PO DAILY 01/02/22 [History] Pregabalin [Lyrica 100Mg] 100 mg PO BID 01/02/22 [History] Sevelamer Carbonate [Renvela] 3,200 mg PO TID 01/02/22 [History] Sildenafil Citrate [Viagra] 100 mg PO DAILY PRN 01/02/22 [History] Hx Tetanus, Diphtheria Vaccination/Date Given: (unknown) Hx Influenza Vaccination/Date Given: No Hx Pneumococcal Vaccination/Date Given: No Immunizations Up to Date: No Travel Risk - International Travel Have you traveled outside of the country in past 3 weeks: No - Coronavirus Screening Are you exhibiting any of the following symptoms?: No Close contact with a COVID-19 positive Pt in past 14-21 Days: No - Vaccine Status Have you recieved a Covid-19 vaccination: No - Review of Systems Constitutional: No Symptoms Eyes: No Symptoms Respiratory: No Symptoms Cardiac: No Symptoms Abdominal/Gastrointestinal: No Symptoms Musculoskeletal: Injury Skin: No Symptoms Psychological: No Symptoms Hematologic/Lymphatic: No Symptoms Immunological/Allergic: No Symptoms - Past Medical History Pertinent Past Medical History: Yes Cardiac History: Hypertension History: Renal Disease Other Medical History: PARAPLEGIC, END STAGE RENAL DISEASE, NEUROPATHY - Past Surgical History Past Surgical History: Yes Gastrointestinal: Hernia Repair Musculoskeletal: Orthopedic Surgery Other Surgical History: SPINAL FUSION, FISTULA PLACEMENT, HERNIA REPAIR, fx femur - Social History Smoking Status: Former smoker How long have you smoked: 20 Exposure to second hand smoke: No Drug Use: none Patient Lives Alone: No - Nursing Vital Signs Nursing Vital Signs: Initial Vital Signs Temperature 97.7 F 03/07/22 21:37 Pulse Rate 79 03/07/22 21:37 Respiratory Rate 20 03/07/22 21:37 Blood Pressure 174/102 03/07/22 21:37 O2 Sat by Pulse Oximetry 99 03/07/22 21:37 Pain Scale Pain Intensity 5 - Anitha Coma Score Best Eye Response ([place]): (4) open spontaneously Best Verbal Response (Anitha): (5) oriented Best Motor Response (Anitha): (6) obeys commands [place] Total: 15 - Physical Exam General Appearance: no apparent distress, alert Head Injury: no evidence of injury Eye Exam: PERRL/EOMI, eyes nml inspection ENT Exam: airway nml, No evidence of ENT injury, No dental injury Neck Exam: supple, trachea midline, full range of motion, normal alignment, normal inspection Respiratory/Chest Exam: normal breath sounds, No chest tenderness, No respiratory distress Cardiovascular Exam: normal heart sounds, regular rate/rhythm Gastrointestinal Exam: soft, normal bowel sounds, No tenderness Back Exam: normal inspection Extremity Exam: capillary refill <3 sec, pelvis stable, pain with movement, pedal edema, tenderness (Negative Lorfan right.), No normal range of motion Neurologic Exam: alert, oriented x 3, cooperative Skin Exam: normal color SpO2 Interpretation: normal SpO2: 99 O2 Delivery: Room Air Ordered Tests: Medication Summary Discontinued Medications Generic Name Dose Route Start Last Admin Trade Name Freq PRN Reason Stop Dose Admin Hydrocodone Bitart/Acetaminophen 2 tab 03/07/22 22:03 03/07/22 22:09 Hydrocodone/Apap 5/325 Mg Tablet PO 03/07/22 22:04 2 tab STAT ONE Administration Hydrocodone Bitart/Acetaminophen Confirm 03/07/22 22:08 Hydrocodone/Apap 5/325 Mg Tablet Administered 03/07/22 22:09 Dose 2 tab .ROUTE .STK-MED ONE - Progress Progress: improved, re-examined Progress Note: 03/07/22 23:07 Given symptomatic treatment for pain. X-ray showed lower/distal tib-fib fracture which seems to be old. Placed in a posterior splint. Outpatient orthopedic surgery follow-up recommended. Counseled pt/family regarding: diagnosis, need for follow-up, rad results - Departure Departure Disposition: Home Clinical Impression: Fall, Acute leg pain Condition: Stable Critical Care Time: No Referrals: MINA JIMENEZ [Primary Care Provider] - Follow Up with PCP/3 days LASHONDA EARL DPM [ACTIVE STAFF] - Follow up/PCP as directed (Tomorrow for reevaluation) Instructions: Shinbone Fracture Additional Instructions: Take pain medications as needed. Follow-up with Ortho/podiatry for reevaluation. Return to ER for any worsening. Prescriptions: Hydrocodone/Acetaminophen [Hydrocodone-Acetamin 5-325 mg] 1 tab PO Q6HPRN PRN 3 Days #6 tablet MDD 4 PRN Reason: Pain
[2022-03-08 00:33] VITALS: BP 153/85; PULSE 78
--- NOTE | 2022-03-08 09:49 | XRAY ---
Indication: Pain following fall. Paraplegic. Comparison: None 2 view right lower leg demonstrates nondisplaced acute fractures distal tibia/fibula shaft fractures with soft tissue swelling. Incidental osteopenia and incompletely visualized distal femur orthopedic fixation hardware.
[2022-03-09 07:29] VITALS: O2SAT 99
== END 2022-03-08 00:33 | disposition home or self-care (01) ==
LOC: ED 21:36
DX: M79.661 Pain in right lower leg (principal); W06.XXXA Fall from bed, initial encounter; Y93.84 Activity, sleeping; Y92.003 Bedroom of unspecified non-institutional (private) residence as the place of occurrence of the external cause; G82.20 Paraplegia, unspecified; Z99.3 Dependence on wheelchair; I12.0 Hypertensive chronic kidney disease with stage 5 chronic kidney disease or end stage renal disease; N18.6 End stage renal disease; Z99.2 Dependence on renal dialysis; Z79.891 Long term (current) use of opiate analgesic; Z79.899 Other long term (current) drug therapy; Z28.310 Unvaccinated for COVID-19
CPT/HCPCS: 73590; 99283; A9270-GY

== ENCOUNTER 2023-03-11 05:44 | Day surgery (SDC) | payer MEDICARE, BC ==
[2023-03-11] MEDS ORDERED: Sodium Chloride 0.9% 500 ML 500 ML IV SCH (06:30)
[2023-03-11] MEDS ORDERED: Lactated Ringers 1,000 ML IV SCH (06:30)
[2023-03-11 06:37] LABS: Absolute Neutrophil Ct (ANC) 5.25 x10^3/uL (1.4-6.9); BASOPHIL % 0.7 % (0.0-0.4); Basophil (Absolute #) 0.06 x10^3/uL (0-0.4); Eosinophil % 3.3 % (0.00-5.0); Eosinophil (Absolute #) 0.29 x10^3/uL (0-0.5); Hematocrit 36.2 % (42-50); Hemoglobin 11.1 g/dL (12.5-18.0); IMMATURE GRAN # 0.05 x10^3u/L (0.00-0.03); IMMATURE GRAN % 0.6 % (0.00-0.4); Lymphocyte (Absolute #) 1.97 x10^3/uL (1.0-4.6); Lymphocytes % 22.7 % (24.0-44.0); Mean Cell Volume 90.5 fL (78-100); Mean Corpuscular Hemoglobin 27.8 pg (26-32); Mean Corpuscular Hgb Concent. 30.7 g/dL (32-36); Monocyte (Absolute #) 1.04 x10^3/uL (0.0-1.3); Neutrophil % 60.7 % (36.0-66.0); Platelet Count 289 x10^3/uL (150-450); Red Cell Distribution Width 15.8 % (11.5-14.0); White Blood Count 8.7 x10^3/uL (4.0-10.5)
[2023-03-11 06:49] VITALS: RESP 18
[2023-03-11 07:05] LABS: ALBUMIN 3.9 g/dL (3.5-5.0); BILIRUBIN,TOTAL 0.6 mg/dL (0.2-1.3); Calcium 9.5 mg/dL (8.4-10.2); Creatinine 1 4.64 mg/dL (0.66-1.25); EST GLOMERULAR FILTRATION RATE 14.5 ML/MIN; Potassium 4.2 mmol/L (3.5-5.1); Total Protein 7.6 g/dL (6.3-8.2)
[2023-03-11] MEDS ORDERED: DIPRIVAN 200 MG/20 ML IV ONE (07:34)
[2023-03-11 09:09] VITALS: O2SAT 95
[2023-03-11 09:11] VITALS: BP 106/66; PULSE 69; TEMP 97
--- NOTE | 2023-03-11 09:32 | OP ---
SURGERY DATE/TIME: 03/11/2023 0732 PREOPERATIVE DIAGNOSIS: Screening exam. POSTOPERATIVE DIAGNOSIS: Normal colon. PROCEDURE: Colonoscopy. SURGEON: Dr. Louie. ANESTHESIA: Medications given by anesthesia department. HISTORY: The patient is a 47-year-old white male patient presenting now for screening colonoscopy. The patient was appraised of the risks of the procedure including the risk of perforation, phlebitis, untoward reaction to medication, bleeding and missed lesions. The patient verbalized his understanding and desired to have the procedure performed. DESCRIPTION OF PROCEDURE: The patient was given the medications by the anesthesia department. He had continuous pulse oximetry, ECG monitoring and intermittent blood pressure monitoring during the examination. He was placed in the left lateral decubitus position. A digital rectal examination was performed and revealed normal anal sphincter tone, no masses and a normal prostate. The flexible Olympus pediatric colonoscope was used to intubate the rectum. A view of the colon was developed sequentially to the cecum. Upon insertion and withdrawal, including a retroflex view in the rectum, no mucosal lesions were encountered. The scope was removed from the patient who tolerated the procedure well and was sent back to OP recovery in good condition. The prep was noted to be fair to poor.
== END 2023-03-11 09:20 | disposition home or self-care (01) ==
LOC: SDC 05:44
PROVIDERS: ATTEND Family Medicine
DX: Z12.11 Encounter for screening for malignant neoplasm of colon (principal); I10 Essential (primary) hypertension
CPT/HCPCS: 36415; 80053; 85025; 93005; J2704

== ENCOUNTER 2024-03-22 09:52 | Emergency (ER) | payer BC, MEDICARE ==
[2024-03-22 10:09] VITALS: TEMP 97.5
--- NOTE | 2024-03-22 10:33 | ERPHSYRPT ---
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 Patient is a paraplegic, states that he fell out of bed on 2 days prior to arrival. Developed a injury, sore. This went on to become an abscess. Draining, foul-smelling, no other injuries. He did not lose consciousness. Patient states that he has not been on any recent antibiotics. Patient is a dialysis patient. Allergies/Adverse Reactions: ceftriaxone [From Rocephin] Allergy (Severe, Verified 03/22/24 10:09) Difficulty Breathing Home Medications: Carvedilol 12.5 mg [Coreg 12.5 mg] 25 mg PO BID 01/02/22 [History] Pregabalin [Lyrica 100Mg] 100 mg PO BID 01/02/22 [History] Sevelamer Carbonate [Renvela] 3,200 mg PO TID 01/02/22 [History] Amlodipine Besylate [Norvasc] 5 mg PO BID 03/05/23 [History] Cinacalcet HCl [Sensipar] 90 mg PO DAILY 03/05/23 [History] Esomeprazole Magnesium 40 mg PO DAILY 03/22/24 [History] cloNIDine HCL [Clonidine HCl] 0.3 mg PO HS 03/22/24 [History] Hx Tetanus, Diphtheria Vaccination/Date Given: (unknown) Hx Influenza Vaccination/Date Given: No Hx Pneumococcal Vaccination/Date Given: No Travel Risk - International Travel Have you traveled outside of the country in past 3 weeks: No - Emerging Infectious Disease Are you exhibiting symptoms associated with any current EIDs: No - Past Medical History Pertinent Past Medical History: Yes Neurological History: No Pertinent History ENT History: No Pertinent History Cardiac History: Deep Vein Thrombosis, Hypertension Respiratory History: No Pertinent History Endocrine Medical History: No Pertinent History History: Dialysis, Renal Disease Other Medical History: PARAPLEGIC, END STAGE RENAL DISEASE, NEUROPATHY - Past Surgical History Past Surgical History: Yes Gastrointestinal: Hernia Repair Musculoskeletal: Orthopedic Surgery Other Surgical History: SPINAL FUSION, FISTULA PLACEMENT, HERNIA REPAIR, fx femur - Social History Smoking Status: Current every day smoker How long have you smoked: vapes Exposure to second hand smoke: No Drug Use: none Patient Lives Alone: No - Social Determinants of Health Will the patient participate in the screening: Declined to provide - Nursing Vital Signs Nursing Vital Signs: Initial Vital Signs Temperature 97.5 F 03/22/24 10:00 Pulse Rate 61 03/22/24 10:00 Blood Pressure 173/102 03/22/24 10:00 O2 Sat by Pulse Oximetry 100 03/22/24 10:00 Pain Scale Pain Intensity 7 - Physical Exam SpO2: 98 Comments: 03/22/24 10:32 Review of Systems Constitutional: Negative for fever. HENT: Negative for congestion. Respiratory: Negative for shortness of breath. Cardiovascular: Negative for chest pain. Gastrointestinal: Negative for abdominal pain. Genitourinary: Negative for dysuria. Musculoskeletal: Negative for back pain. Skin: Negative for rash. Neurological: Negative for headaches. Psychiatric/Behavioral: Negative for behavioral problems. All other systems reviewed and are negative. Physical Exam Vitals signs and nursing note reviewed. Constitutional: Appearance: Patient is well-developed. HENT: Head: Normocephalic and atraumatic. Eyes: Conjunctiva/sclera: Conjunctivae normal. Neck: Musculoskeletal: Normal range of motion. Large area of swelling, tenderness on anterior neck. Draining pus as I walk into the room. Foul-smelling. Patient has some trismus when trying to open his mouth. No signs of meningitis, encephalitis. Uvula is midline, no swelling of the mouth, noraml oropharynx. No exudate, no signs of meningitis, no floor of mouth swelling, no hot potato voice on exam. No buccal swelling, no gum bleeding, no signs of tooth abscess/infection. Trachea: No tracheal deviation. Cardiovascular: Rate and Rhythm: Normal rate. Pulmonary: Effort: Pulmonary effort is normal. No respiratory distress. Abdominal: Palpations: Abdomen is soft. Musculoskeletal: General: No deformity. Skin: General: Skin is warm and dry. Neurological/ Psychiatric: Mental Status: Mental status, behavior, interaction with environment is appropriate for patient's age and condition 03/22/24 16:19 Procedures - Incision and Drainage Time of Procedure: 16:18 Site: neck cc's of anesthesia: 3 Blade Size: other (Abscess already has open area of draining, we are able to open up track with forceps alone) I & D Procedure: betadine prep, sterile dressing applied, culture obtained, irrigated with normal saline Results: moderate amount pus Progress: Patient already has draining abscess we did open it up more with forceps. We did express moderate purulent drainage. This was sent for culture. - Course Nursing assessment & vital signs reviewed: Yes Ordered Tests: Active Orders 24 hr Category Date Time Status EKG-ER Only STAT Care 03/22/24 16:20 Active IV Insertion STAT Care 03/22/24 10:24 Active NECK WITH CONTRAST [CT] Stat Exams 03/22/24 10:25 Completed BMP Stat Lab 03/22/24 16:03 Ordered CBC W DIFF Stat Lab 03/22/24 10:50 Completed CMP Stat Lab 03/22/24 10:50 Completed CULTURE,WOUND Stat Lab 03/22/24 16:09 Received Respiratory Therapy Assessment DAILY RT 03/22/24 16:27 Active Medication Summary Discontinued Medications Generic Name Dose Route Start Last Admin Trade Name Freq PRN Reason Stop Dose Admin Albuterol/Ipratropium 3 ml 03/22/24 16:11 03/22/24 16:23 Ipratropium/Albuterol Sulfate 3 Ml Ampul.Neb IH 03/22/24 16:12 3 ml STAT ONE Administration Albuterol/Ipratropium Confirm 03/22/24 16:16 Ipratropium/Albuterol Sulfate 3 Ml Ampul.Neb Administered 03/22/24 16:17 Dose 3 ml IH .STK-MED ONE Calcium Gluconate 1,000 mg 03/22/24 16:41 Calcium Gluconate 1000 Mg/10 Ml Vial IV 03/22/24 16:42 STAT ONE Dextrose 50 ml 03/22/24 16:41 Dextrose 50%-Water 50 Ml Abboject IV 03/22/24 16:42 STAT ONE Hydromorphone HCl 1 mg 03/22/24 10:24 03/22/24 11:12 Hydromorphone 1 Mg/1ml Inj IV 03/22/24 10:25 1 mg STAT ONE Administration Hydromorphone HCl Confirm 03/22/24 11:05 Hydromorphone 1 Mg/1ml Inj Administered 03/22/24 11:06 Dose 1 mg .ROUTE .STK-MED ONE Sodium Chloride 1,000 mls @ 999 mls/hr 03/22/24 10:24 03/22/24 12:28 Sodium Chloride 0.9% 1000 Ml IV 03/22/24 11:24 Infused .Q1H1M STA Infusion Clindamycin HCl/Dextrose 600 mg in 50 mls @ 100 mls/hr 03/22/24 10:30 03/22/24 12:09 Clindamycin-D5w 600 Mg/50 Ml IV 03/22/24 10:59 Infused STAT STA Infusion Sodium Chloride Confirm 03/22/24 11:05 Sodium Chloride 0.9% 1000 Ml Administered 03/22/24 11:06 Dose 1,000 mls @ ud .ROUTE .STK-MED ONE Clindamycin HCl/Dextrose Confirm 03/22/24 11:05 Clindamycin-D5w 600 Mg/50 Ml Administered 03/22/24 11:06 Dose 600 mg in 50 mls @ ud IV .STK-MED ONE Vancomycin HCl 1 gm in 200 mls @ 125 mls/hr 03/22/24 16:12 03/22/24 17:20 Vancomycin 1 Gram/200 Ml Bag IV 03/22/24 17:47 125 ml/hr STAT ONE 125 mls/hr Administration Piperacillin Sod/Tazobactam 100 mls @ 200 mls/hr 03/22/24 16:13 03/22/24 16:35 Sod 4.5 gm/ Sodium Chloride IV 03/22/24 16:42 200 mls/hr STAT ONE Administration Sodium Chloride Confirm 03/22/24 16:32 Sodium Chloride 100ml Mini-Bag Plus Administered 03/22/24 16:33 Dose 100 mls @ ud IV .STK-MED ONE Vancomycin HCl Confirm 03/22/24 17:18 Vancomycin 1 Gram/200 Ml Bag Administered 03/22/24 17:19 Dose 1 gm in 200 mls @ ud IV .STK-MED ONE Insulin Human Regular 5 unit 03/22/24 16:41 Insulin Regular, Human 1 Unit IV 03/22/24 16:42 STAT ONE Lidocaine HCl 10 ml 03/22/24 16:07 03/22/24 16:10 Lidocaine Hcl 1% 20 Ml Mdv 20 Ml Ml IJ 03/22/24 16:08 10 ml STAT ONE Administration Lidocaine HCl Confirm 03/22/24 16:09 Lidocaine Hcl 1% 20 Ml Mdv 20 Ml Ml Administered 03/22/24 16:10 Dose 10 ml .ROUTE .STK-MED ONE Morphine Sulfate 4 mg 03/22/24 16:10 03/22/24 16:16 Morphine Sulfate 4 Mg/Ml Injection IV 03/22/24 16:11 4 mg STAT ONE Administration Morphine Sulfate Confirm 03/22/24 16:15 Morphine Sulfate 4 Mg/Ml Injection Administered 03/22/24 16:16 Dose 4 mg .ROUTE .STK-MED ONE Ondansetron HCl 4 mg 03/22/24 10:24 03/22/24 11:12 Ondansetron Hcl 4 Mg/2 Ml Vial IV 03/22/24 10:25 4 mg STAT ONE Administration Ondansetron HCl Confirm 03/22/24 11:04 Ondansetron Hcl 4 Mg/2 Ml Vial Administered 03/22/24 11:05 Dose 4 mg .ROUTE .STK-MED ONE Patiromer 16.8 gm 03/22/24 16:53 Patiromer Calcium Sorbitex 8.4 Gm Powd.Pack PO 03/22/24 16:54 STAT STA Piperacillin Sod/Tazobactam Sod Confirm 03/22/24 16:31 Piperacillin/Tazobactam Sodium 4.5 Gm Vial Administered 03/22/24 16:32 Dose 4.5 gm IV .STK-MED ONE Sodium Bicarbonate 50 meq 03/22/24 16:41 Sodium Bicarbonate 1 Meq/Ml 50ml Syringe IV 03/22/24 16:42 STAT ONE Sodium Polystyrene Sulfonate 30 g 03/22/24 16:41 03/22/24 16:52 Sodium Polystyrene Sulfonate 15 G/60 Ml Bottle PO 03/22/24 16:42 Not Given STAT ONE Lab/Rad Data: Laboratory Result Diagrams 03/22/24 10:50 03/22/24 10:50 Laboratory Results 03/22/24 03/22/24 Range/Units 10:50 10:50 WBC 11.5 H (4.23-9.07) x10^3/uL RBC 4.12 L (4.63-6.08) x10^6/uL Hgb 12.5 L (13.7-17.5) g/dL Hct 38.8 L (40.1-51.0) % MCV 94.2 H (79.0-92.2) fL MCH 30.3 (25.7-32.2) pg MCHC 32.2 L (32.3-36.5) g/dL RDW 14.4 (11.6-14.4) % Plt Count 211 (163-337) x10^3/uL MPV 9.8 (9.4-12.4) fL Gran % 68.0 H (34.0-67.9) % Immature Gran % (Auto) 0.3 (0.001-0.429) % Nucleat RBC Rel Count 0.0 (0.00-0.2) % Eos # (Auto) 0.60 H (0.04-0.54) x10^3/uL Immature Gran # (Auto) 0.04 H (0.001-0.031) x10^3u/L Absolute Lymphs (auto) 1.84 (1.32-3.57) x10^3/uL Absolute Monos (auto) 1.15 H (0.30-0.82) x10^3/uL Absolute Nucleated RBC 0.00 (0.00-0.012) x10^3u/L Lymphocytes % 16.0 L (21.8-53.1) % Monocytes % 10.0 (5.3-12.2) % Eosinophils % 5.2 (0.8-7.0) % Basophils % 0.5 (0.2-1.2) % Absolute Granulocytes 7.83 H (1.78-5.38) x10^3/uL Basophils # 0.06 (0.01-0.08) x10^3/uL Sodium 134 L (135-145) mmol/L Potassium 6.2 H* (3.5-5.1) mmol/L Chloride 90 L (98-107) mmol/L Carbon Dioxide 29 (22-30) mmol/L Anion Gap 21.3 H (5-15) MEQ/L BUN 52 H (9-20) mg/dL Creatinine 9.78 H (0.66-1.25) mg/dL Estimated GFR 6.0 ML/MIN Glucose 86 (74-106) mg/dL Calcium 8.8 (8.4-10.2) mg/dL Total Bilirubin 0.70 (0.2-1.3) mg/dL AST 14 L (17-59) U/L ALT 9 (0-50) U/L Alkaline Phosphatase 87 (38-126) U/L Serum Total Protein 7.8 (6.3-8.2) g/dL Albumin 4.0 (3.5-5.0) g/dL - Progress Progress: improved Progress Note: 03/22/24 10:33 Plan for IV antibiotics, basic labs, IV clindamycin, CT soft tissue neck 03/22/24 15:44 CT scan demonstrates neck abscess with swelling and inflammation into the submandibular region. Given this concern for possible developing or extending into submandibular space. I do believe patient will need to be admitted for IV antibiotics, possible surgical expression in the OR. We did attempt to discuss with ENT at [facility], [facility]. None of these hospitals have an ENT on-call for them. Therefore we did discuss with Dr. Hawk at [facility] in [place]. He did state that he would see the patient in conjunction with the hospitalist. Patient will also need dialysis given contrast load and missing dialysis today. 03/22/24 16:[address] scan, we were able to express some purulent drainage at bedside. See procedure note for full details. Plan to repeat BMP and most likely give hyperkalemia medication here in lieu of patient missing dialysis. Patient did have slightly bumped potassium on first BMP. 03/22/24 17:07 Patient declined repeat BMP given he has a difficult stick and has a dialysis access. We are unable to access dialysis ports here in the emergency department. We did call lab, they were unable to draw blood from him as well. Therefore, patient did ultimately declined repeat BMP. We did explain the risks and benefits of this to him. Decision made to treat with hyperkalemia protocol either way empirically. Will obtain an EKG making sure that he does not have any peaked T waves. 03/22/24 18:04 Patient will be going to [facility]. Accepting physician was Dr. Hernandez. He requested that we add on vancomycin and Zosyn to antibiotics regime. Patient is hemodynamically stable transfer of care to Dr. Hinds at 7 PM. Transfer care will be here at 8:15 PM. Counseled pt/family regarding: lab results, diagnosis, need for follow-up, rad results - Departure Departure Disposition: Transfer Clinical Impression: Neck abscess, Hyperkalemia, Dialysis patient Condition: Stable Critical Care Time: No Referrals: MINA JIMENEZ [Primary Care Provider] - Follow up/PCP as directed
[2024-03-22 11:04] LABS: Absolute Neutrophil Ct (ANC) 7.83 x10^3/uL (1.78-5.38); BASOPHIL % 0.5 % (0.2-1.2); Basophil (Absolute #) 0.06 x10^3/uL (0.01-0.08); Eosinophil % 5.2 % (0.8-7.0); Hematocrit 38.8 % (40.1-51.0); Hemoglobin 12.5 g/dL (13.7-17.5); IMMATURE GRAN # 0.04 x10^3u/L (0.001-0.031); IMMATURE GRAN % 0.3 % (0.001-0.429); Lymphocyte (Absolute #) 1.84 x10^3/uL (1.32-3.57); Mean Cell Volume 94.2 fL (79.0-92.2); Mean Corpuscular Hemoglobin 30.3 pg (25.7-32.2); Mean Corpuscular Hgb Concent. 32.2 g/dL (32.3-36.5); Mean Platelet Volume 9.8 fL (9.4-12.4); Monocyte (Absolute #) 1.15 x10^3/uL (0.30-0.82); Platelet Count 211 x10^3/uL (163-337); Red Blood Count 4.12 x10^6/uL (4.63-6.08); Red Cell Distribution Width 14.4 % (11.6-14.4); White Blood Count 11.5 x10^3/uL (4.23-9.07)
[2024-03-22] MEDS ORDERED: Zofran 4 MG/2 ML VIAL ONE (11:04)
[2024-03-22] MEDS ORDERED: Hydromorphone 1 mg/ml Injection ONE (11:05)
[2024-03-22] MEDS ORDERED: Sodium Chloride 0.9% 1000 ML 1,000 ML ONE (11:05)
[2024-03-22] MEDS ORDERED: CLINDAMYCIN-D5W 600 MG/50 ML*** 600 MG/50 ML BAG IV ONE (11:05)
[2024-03-22] MEDS: Hydromorphone 1 mg/ml Injection IV ONE (11:12)
[2024-03-22] MEDS: Zofran 4 MG/2 ML VIAL IV ONE (11:12)
[2024-03-22] MEDS: CLINDAMYCIN-D5W 600 MG/50 ML*** 600 MG/50 ML BAG IV STA (11:13)
[2024-03-22] MEDS: Sodium Chloride 0.9% 1000 ML 1,000 ML IV STA (11:13)
[2024-03-22 11:18] LABS: ANION GAP 21.3 MEQ/L (5-15); BILIRUBIN,TOTAL 0.7 mg/dL (0.2-1.3); Calcium 8.8 mg/dL (8.4-10.2); Creatinine 1 9.78 mg/dL (0.66-1.25); Total Protein 7.8 g/dL (6.3-8.2)
[2024-03-22 11:28] LABS: Potassium 6.2 mmol/L (3.5-5.1)
--- NOTE | 2024-03-22 13:03 | XRAY ---
Indication: Abscess. Multiple contiguous axial images obtained through the neck using 60 cc Isovue 370 contrast. Comparison: None Parotid and submandibular glands are bilaterally symmetric. Mild submandibular soft tissue swelling/edema with 1.6 x 2.0 x 1.6 cm midline subcutaneous walled off fluid collection, probable abscess as clinically reported. Query percutaneous drainage. A few centimeter/subcentimeter cervical lymph nodes. No pathologic lymphadenopathy. Thyroid gland enhances homogeneously. Major arteries and veins are normal course and caliber. Supra-and infraglottic airway widely patent. Normal epiglottis. Osseous structures intact with osteopenia, C2-C3 congenital fusion, and mild/moderate multilevel cervical degenerative changes greatest at C5-C6. No acute fracture, suspicious bony lesions, or osseous destructive process. Base of brain unremarkable. Lung apices demonstrates bilateral dependent atelectasis. Impression: 1. Submandibular soft tissue swelling/edema presumed inflammatory/infectious with small midline subcutaneous walled off fluid collection, possible abscess. Query drainage. 2. Chronic bony findings.
[2024-03-22] MEDS ORDERED: XYLOCAINE 1% HCL 20 ML MDV ONE (16:09)
[2024-03-22] MEDS: XYLOCAINE 1% HCL 20 ML MDV IJ ONE (16:10)
[2024-03-22] MEDS ORDERED: MORPHINE SULFATE 4 MG INJ ONE ×2 (16:15→20:22)
[2024-03-22] MEDS: MORPHINE SULFATE 4 MG INJ IV ONE ×2 (16:16→20:24)
[2024-03-22] MEDS ORDERED: DUONEB 0.5-3 MG/3 ml Neb IH ONE (16:16)
[2024-03-22] MEDS: DUONEB 0.5-3 MG/3 ml Neb IH ONE (16:23)
[2024-03-22] MEDS ORDERED: PIPERACILLIN/TAZOBACTAM IV ONE (16:31)
[2024-03-22] MEDS ORDERED: Sodium Chloride 100ML MINI-BAG PLUS 100 ML IV ONE (16:32)
[2024-03-22] MEDS: PIPERACILLIN/TAZOBACTAM 4.5 GM in Sodium Chloride 100ML MINI-BAG PLUS 100 ML IV ONE (16:35)
[2024-03-22] MEDS: Kayexylate 15 GM/60 ML PO ONE (16:52)
[2024-03-22] MEDS ORDERED: VANCOMYCIN 1 GRAM/200 ML BAG 1 GM/200 ML PIGGYBACK IV ONE (17:18)
[2024-03-22] MEDS: VANCOMYCIN 1 GRAM/200 ML BAG 1 GM/200 ML PIGGYBACK IV ONE (17:20)
[2024-03-22] MEDS ORDERED: Calcium Gluconate 10% 1000 MG IV ONE (18:14)
[2024-03-22] MEDS ORDERED: HUMULIN R ONE (18:15)
[2024-03-22] MEDS ORDERED: VELTASSA PO ONE (18:16)
[2024-03-22] MEDS ORDERED: D50W 50 ml Abboject IV ONE (18:16)
[2024-03-22] MEDS ORDERED: SODIUM BICARBONATE 50 MEQ/50 ML ABBOJECT IV ONE (18:16)
[2024-03-22] MEDS: D50W 50 ml Abboject IV ONE (18:17)
[2024-03-22] MEDS: SODIUM BICARBONATE 50 MEQ/50 ML ABBOJECT IV ONE (18:17)
[2024-03-22] MEDS: Calcium Gluconate 10% 1000 MG IV ONE (18:18)
[2024-03-22] MEDS: HUMULIN R IV ONE (18:18)
[2024-03-22] MEDS: VELTASSA PO STA (18:18)
[2024-03-22 20:06] VITALS: BP 150/89; PULSE 53; RESP 14; O2SAT 99
== END 2024-03-22 20:33 | disposition short-term general hospital (02) ==
LOC: ED 09:52
DX: L02.11 Cutaneous abscess of neck (principal); E87.5 Hyperkalemia; I12.0 Hypertensive chronic kidney disease with stage 5 chronic kidney disease or end stage renal disease; N18.6 End stage renal disease; Z99.2 Dependence on renal dialysis; G82.20 Paraplegia, unspecified; Z79.899 Other long term (current) drug therapy; Z72.0 Tobacco use
CPT/HCPCS: 36000; 36415; 70491; 80053; 85025; 87070; 87077; 87186; 93005; 94640; 96365; 96372; 96374; 96375; 96376; 99285; J0612; J1170; J1815; J2270; J2405; J2543; A9270-GY; J3370

== ENCOUNTER 2024-06-24 19:18 | Emergency (ER) | payer MEDICARE, BC ==
[2024-06-24 19:40] VITALS: TEMP 98.1
[2024-06-24] MEDS ORDERED: NORCO 5/325 MG ONE ×2 (20:26→23:53)
[2024-06-24] MEDS: NORCO 5/325 MG PO ONE ×2 (20:27→23:56)
--- NOTE | 2024-06-24 22:06 | ERPHSYRPT ---
- History of Present Illness Time Seen by Provider: 06/24/24 19:24 Source: patient, EMS Exam Limitations: no limitations Patient Subjective Stated Complaint: c/o of left leg and foot pain post-fall Triage Nursing Assessment: patient brought into ED by EMS with c/o left foot and leg pain after a fall at home. patient rates pain 8/10 in the foot and 6/10 in the left leg. patient states he was checking his faucet and fell out of the wheelchair and thinks his toes got caught in the wheelchair. no deformities present at this time. tender with movement and some swelling noted. patient is a paraplegic and has dialysis. patient states the foot often gets swollen after dialysis treatments. patient is slightly hypertensive, pulses normal, skin w/n/d, patient doesn't appear to be in any distress at this time. Physician History: 48 years old male with history of T10 spinal injury with paraplegia, ESRD on dialysis, hypertension, osteopenia with contractures in lower extremities, wheelchair-bound was trying to check his faucets and fell forward on the concrete and bent his left foot and hit the knee. Patient reports pain in the left foot hip and bilateral hips. Does have history of right femur fracture. Patient denies hitting his head or loss of consciousness. Patient reports most pain in the left foot arch area. Does have chronic swelling which is not any worse than usual. No injury anywhere else. Has tenderness left foot and right knee with some contractures and limited range of motion. No obvious deformity noticed. Has tenderness in the both hips. X-rays bilateral hip, left knee and foot are negative for acute fracture dislocation reviewed by me, official report is pending. He is given [place] for symptomatic relief and on reevaluation is feeling better. It was a clear mechanical fall, do not think needs any other workup, will give him pain medication to go home as I believe patient has contusion of the knee and sprain of the foot. Will do Yousuf wrap on the foot and ankle. Discussed sign s symptoms of worsening needing return to ER which he seems understanding. Stable for discharge. Allergies/Adverse Reactions: ceftriaxone [From Rocephin] Allergy (Severe, Verified 06/24/24 19:40) Difficulty Breathing Home Medications: Carvedilol 12.5 mg [Coreg 12.5 mg] 25 mg PO BID 01/02/22 [History] Pregabalin [Lyrica 100Mg] 100 mg PO BID 01/02/22 [History] Sevelamer Carbonate [Renvela] 3,200 mg PO TID 01/02/22 [History] Amlodipine Besylate [Norvasc] 5 mg PO BID 03/05/23 [History] Cinacalcet HCl [Sensipar] 90 mg PO DAILY 03/05/23 [History] Esomeprazole Magnesium 40 mg PO DAILY 03/22/24 [History] cloNIDine HCL [Clonidine HCl] 0.3 mg PO HS 03/22/24 [History] Hx Tetanus, Diphtheria Vaccination/Date Given: No (unknown) Hx Influenza Vaccination/Date Given: Yes Hx Pneumococcal Vaccination/Date Given: No Travel Risk - International Travel Have you traveled outside of the country in past 3 weeks: No - Emerging Infectious Disease Are you exhibiting symptoms associated with any current EIDs: No - Review of Systems Constitutional: No Symptoms Respiratory: No Symptoms Cardiac: No Symptoms Abdominal/Gastrointestinal: No Symptoms Musculoskeletal: Fall, Injury, Joint Pain, Joint Swelling Endocrine: No Symptoms Hematologic/Lymphatic: No Symptoms - Past Medical History Pertinent Past Medical History: Yes Neurological History: No Pertinent History ENT History: No Pertinent History Cardiac History: Deep Vein Thrombosis, Hypertension Respiratory History: No Pertinent History Endocrine Medical History: No Pertinent History History: Dialysis, Renal Disease Other Medical History: PARAPLEGIC, END STAGE RENAL DISEASE, NEUROPATHY, fx bilat shins - Past Surgical History Past Surgical History: Yes Gastrointestinal: Hernia Repair Musculoskeletal: Orthopedic Surgery Other Surgical History: SPINAL FUSION, FISTULA PLACEMENT, HERNIA REPAIR, fx femur - Social History Smoking Status: Never smoker How long have you smoked: vapes Exposure to second hand smoke: No Drug Use: none Patient Lives Alone: No - Social Determinants of Health Will the patient participate in the screening: Declined to provide - Nursing Vital Signs Nursing Vital Signs: Initial Vital Signs Temperature 98.1 F 06/24/24 19:21 Pulse Rate 78 06/24/24 19:21 Respiratory Rate 18 06/24/24 19:21 Blood Pressure 162/94 06/24/24 19:21 O2 Sat by Pulse Oximetry 100 06/24/24 19:21 Pain Scale Pain Intensity 8 - Anitha Coma Score Best Eye Response (Anitha): (4) open spontaneously Best Verbal Response (Wilson): (5) oriented Best Motor Response (Wilson): (6) obeys commands Wilson Total: 15 - Physical Exam General Appearance: no apparent distress, alert Head Injury: no evidence of injury Eye Exam: PERRL/EOMI, eyes nml inspection ENT Exam: airway nml, No evidence of ENT injury, No dental injury Neck Exam: supple, trachea midline, full range of motion, normal alignment Respiratory/Chest Exam: normal breath sounds, No chest tenderness, No respiratory distress Cardiovascular Exam: normal heart sounds, regular rate/rhythm Extremity Exam: joint swelling, limited range of motion, hip tenderness, pain with movement Neurologic Exam: alert, oriented x 3, cooperative Skin Exam: normal color SpO2 Interpretation: normal SpO2: 99 O2 Delivery: Room Air Ordered Tests: Active Orders 24 hr Category Date Time Status FOOT (MINIMUM 3 VIEWS) Stat Exams 06/24/24 21:34 Taken HIP UNI (2V) INCL PEL IF DONE Routine Exams 06/24/24 21:35 Taken HIP UNI (2V) INCL PEL IF DONE Stat Exams 06/24/24 21:09 Taken KNEE (3 VIEWS) Stat Exams 06/24/24 21:35 Taken Medication Summary Discontinued Medications Generic Name Dose Route Start Last Admin Trade Name Freq PRN Reason Stop Dose Admin Hydrocodone Bitart/Acetaminophen 2 tab 06/24/24 20:23 06/24/24 20:27 Hydrocodone/Apap 5/325 1 Tab Tablet PO 06/24/24 20:24 2 tab STAT ONE Administration Hydrocodone Bitart/Acetaminophen Confirm 06/24/24 20:26 Hydrocodone/Apap 5/325 1 Tab Tablet Administered 06/24/24 20:27 Dose 2 tab .ROUTE .STK-MED ONE - Progress Progress: improved, pain not gone completely Progress Note: 06/24/24 22:03 66 years old female with a history of hypertension, diabetes mellitus [id number] presented in the ER with a laceration to the left third digit distal phalanx prior to arrival while doing dishes and came across a sharp edge. Patient reports minimal pain but oozing of blood without spurting. No numbness or tingling distally. Unsure about tetanus status. 1.25 cm superficial laceration left third digit distal phalanx palmar aspect just distal to distal interphalangeal joint. Minimal oozing. Distal neurovascular intact. No injury to the nail. Do not think patient needs imaging as it was a superficial cut and no bony injury. Tetanus is updated Laceration is repaired with 3 interrupted sutures. Tube gauze dressing applied. Recommended Tylenol and outpatient follow-up. Discussed wound care and signs symptoms of worsening needing return to ER which she seems understanding. Stable for discharge. Counseled pt/family regarding: diagnosis, need for follow-up, rad results Medical Desision Making - Independent Historian Additional History obtained from: Justice [address] Deputy Clerk/EMT - Diagnostic Testing Diagnostic test were ordered, analyzed, and reviewed by me: Yes Radiological Interpretation: Interpreted by me, Reviewed by me - Risk of complications The pt has a mod risk of morbidity or mortality based on: Need for prescription drug management - Departure Departure Disposition: Home Clinical Impression: Knee contusion, Foot sprain, Hip strain, Fall Condition: Stable Critical Care Time: No Referrals: MINA JIMENEZ [Primary Care Provider] - Follow up with PCP 1 day Instructions: Contusion (DC) Additional Instructions: Intermittent ice application. Take Tylenol/tramadol as needed. Follow-up with primary care/orthopedics for reevaluation. Return to ER for worsening pain swelling etc. Prescriptions: Tramadol HCl 50 mg [Ultram 50 mg] 50 mg PO Q6HPRN PRN 3 Days #12 tablet PRN Reason: Pain
[2024-06-25] VITALS: BP 176/98; PULSE 85; RESP 17; O2SAT 98
--- NOTE | 2024-06-25 09:31 | XRAY ---
Indication: Status post fall. Comparison: November 03, 2007 3 nonweightbearing views left foot demonstrates new finding old fracture deformity distal tibia/fibula and mild scattered vascular calcifications. Stable marked osteopenia. No acute bony, articular, or soft tissue abnormalities.
--- NOTE | 2024-06-25 09:33 | XRAY ---
Indication: Status post fall. Comparison: None 2 view right hip demonstrates osteopenia, old proximal/distal femur fractures with incompletely visualized intact orthopedic hardware, acetabular protrusio with marked heterotopic ossifications, and moderate scattered vascular calcifications. No acute bony, articular, or soft tissue abnormalities.
--- NOTE | 2024-06-25 09:39 | XRAY ---
Indication: Status post fall. Comparison: None 2 view left hip demonstrates osteopenia, chunky lateral hip heterotopic ossifications, and moderate scattered vascular calcifications. No acute bony, articular, or soft tissue abnormalities.
--- NOTE | 2024-06-25 09:41 | XRAY ---
Indication: Status post fall. Comparison: None 3 view left knee demonstrates marked osteopenia, old proximal tibial shaft fracture deformity, and moderate scattered vascular calcifications. No acute bony, articular, or soft tissue abnormalities.
== END 2024-06-25 00:01 | disposition home or self-care (01) ==
LOC: ED 19:18
DX: S80.02XA Contusion of left knee, initial encounter (principal); S76.012A Strain of muscle, fascia and tendon of left hip, initial encounter; S76.011A Strain of muscle, fascia and tendon of right hip, initial encounter; S93.602A Unspecified sprain of left foot, initial encounter; M79.672 Pain in left foot; W05.0XXA Fall from non-moving wheelchair, initial encounter; G82.20 Paraplegia, unspecified; N18.6 End stage renal disease; Z99.2 Dependence on renal dialysis
CPT/HCPCS: 73502; 73562; 73630; 99283; A9270-GY

== ENCOUNTER 2024-10-21 09:58 | Emergency (ER) | payer MEDICARE, BC ==
[2024-10-21 10:08] VITALS: TEMP 98.6
[2024-10-21] MEDS ORDERED: Zofran 4 MG/2 ML VIAL ONE (11:11)
[2024-10-21] MEDS ORDERED: Sodium Chloride 0.9% 250 ML 250 ML IV ONE (11:12)
[2024-10-21] MEDS ORDERED: MORPHINE SULFATE 4 MG INJ ONE (11:12)
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
[2024-10-21] MEDS: MORPHINE SULFATE 4 MG INJ IV ONE (11:17)
[2024-10-21] MEDS: Zofran 4 MG/2 ML VIAL IV ONE (11:19)
[2024-10-21] MEDS: Sodium Chloride 0.9% 250 ML 250 ML IV SCH (11:20)
[2024-10-21 11:21] LABS: Absolute Neutrophil Ct (ANC) 10.41 x10^3/uL (1.78-5.38); BASOPHIL % 0.3 % (0.2-1.2); Basophil (Absolute #) 0.04 x10^3/uL (0.01-0.08); Eosinophil % 1.5 % (0.8-7.0); Eosinophil (Absolute #) 0.17 x10^3/uL (0.04-0.54); Hematocrit 51.5 % (40.1-51.0); Hemoglobin 16.5 g/dL (13.7-17.5); IMMATURE GRAN # 0.06 x10^3u/L (0.001-0.031); IMMATURE GRAN % 0.5 % (0.001-0.429); Lymphocyte (Absolute #) 0.48 x10^3/uL (1.32-3.57); Lymphocytes % 4.2 % (21.8-53.1); Mean Cell Volume 96.3 fL (79.0-92.2); Mean Corpuscular Hemoglobin 30.8 pg (25.7-32.2); Mean Platelet Volume 10.4 fL (9.4-12.4); Monocyte (Absolute #) 0.31 x10^3/uL (0.30-0.82); Monocytes % 2.7 % (5.3-12.2); Neutrophil % 90.8 % (34.0-67.9); Platelet Count 220 x10^3/uL (163-337); Red Blood Count 5.35 x10^6/uL (4.63-6.08); Red Cell Distribution Width 15.2 % (11.6-14.4); White Blood Count 11.5 x10^3/uL (4.23-9.07)
[2024-10-21 11:28] LABS: IFOB TEST RESULTS POSITIVE (NEGATIVE)
[2024-10-21 11:48] LABS: Slide Review 1 YES
[2024-10-21 12:26] LABS: ALBUMIN 4.9 g/dL (3.5-5.0); ANION GAP 24.1 MEQ/L (5-15); BILIRUBIN,TOTAL 1.2 mg/dL (0.2-1.3); Calcium 9.7 mg/dL (8.4-10.2); Creatinine 1 5.53 mg/dL (0.66-1.25); EST GLOMERULAR FILTRATION RATE 11.9 ML/MIN; Potassium 5.5 mmol/L (3.5-5.1); Total Protein 8.7 g/dL (6.3-8.2)
--- NOTE | 2024-10-21 13:05 | XRAY ---
Indication: Abdominal cramping and diarrhea. Multiple contiguous axial images obtained through the abdomen and pelvis without contrast as ordered. Comparison: None Beam artifact from incompletely visualized thoracolumbar spinal fusion hardware and incompletely visualized proximal right femur gamma nail/intramedullary cody. Lung bases demonstrates mild bilateral dependent atelectasis without infiltrate or effusion. Heart not enlarged with scattered coronary calcifications and aortic/mitral valve calcifications. Small hiatal hernia. Noncontrasted stomach and bowel loops appear nonobstructed. Minimal/mild fluid distended small and large bowel loops throughout, ileus versus enterocolitis. Extensive bilateral polycystic kidney disease. A few tiny hepatic calcified granulomas. No free fluid/air. Remaining visualized gallbladder, pancreas, spleen, adrenal glands, ureters, and bladder are unremarkable for noncontrast exam. Heavy scattered aortoiliac calcifications without AAA. Osseous structures demonstrate osteopenia, mild/moderate multilevel thoracolumbar degenerative spondylosis, mild elongated thoracolumbar dextroscoliosis, old proximal right femur fracture, and mild degenerative changes both hips with numerous heterotopic ossifications bilaterally. Well-circumscribed subcutaneous macrocalcifications posterior to sacrum presumed sequela old injury/inflammation. Impression: 1. Beam artifact from thoracolumbar fusion hardware and proximal right femur orthopedic hardware. 2. Minimal/mild fluid distended small and large bowel loops, ileus versus enterocolitis. 3. Chronic findings including arteriosclerotic disease, cardiac valvular calcifications, polycystic kidney disease, chronic bony findings, and old granulomatous disease.
[2024-10-21 13:20] LABS: 027 TOX PROD PRESUMPTIVE NEGATIVE (NEGATIVE); TOXIGENIC C. DIFF ORG NEGATIVE (NEGATIVE)
[2024-10-21] MEDS ORDERED: FLAGYL 500 MG IVPB 500 MG/100 ML BAG IV ONE (14:51)
[2024-10-21] MEDS: FLAGYL 500 MG IVPB 500 MG/100 ML BAG IV STA (14:53)
[2024-10-21] MEDS: APRESOLINE 20 MG/ML INJ IV ONE (15:34)
[2024-10-21] MEDS ORDERED: Levaquin 250MG/50ML D5W 250 MG/50 ML BAG IV ONE (15:35)
[2024-10-21] MEDS: Levaquin 250MG/50ML D5W 250 MG/50 ML BAG IV STA (15:37)
[2024-10-21 15:57] VITALS: BP 137/84; PULSE 107; RESP 18
[2024-10-22 01:05] VITALS: O2SAT 98
== END 2024-10-21 16:55 | disposition short-term general hospital (02) ==
LOC: ED 09:58
DX: K52.9 Noninfective gastroenteritis and colitis, unspecified (principal); I12.0 Hypertensive chronic kidney disease with stage 5 chronic kidney disease or end stage renal disease; N18.6 End stage renal disease; R10.84 Generalized abdominal pain; Z79.899 Other long term (current) drug therapy; Z99.2 Dependence on renal dialysis
CPT/HCPCS: 36415; 74176; 80053; 83690; 85025; 87493; 96361; 96365; 96375; 99285; G0328; 82274; 96374; J1956; J2270; J2405